=== PATIENT | female | born 2000 | race Caucasian/White ===

== ENCOUNTER 2019-07-11 14:33 | Emergency (ER) | payer SELFPAY ==
[~2019-07-11] VITALS: Ht 160 cm; Wt 123.9 kg
[2019-07-11 14:43] VITALS: BP 131/84
--- NOTE | 2019-07-11 14:49 | ED GI ---
General Chief Complaint: Abdominal/GI Problems Stated Complaint: NAUSEA Nursing Triage Note: COMPLAINS OF NAUSEA ALONG WITH BEING HOT. Sepsis Screen: No Definite Risk Source of Information: Patient Exam Limitations: No Limitations History of Present Illness Date Seen by Provider: Jul 11, 2019 Time Seen by Provider: 14:47 Initial Comments To ER with complaints of nausea, suprapubic abdominal discomfort described as a cramping sensation and feeling hot. No fever no cough no sore throat no travel. Symptoms began this morning upon awakening. Timing/Duration: 1-3 Hours Severity/Quality: Moderate Location: Suprapubic Radiation: No Radiation Activities at Onset: None Associated Symptoms: Nausea/Vomiting Allergies and Home Medications Allergies Coded Allergies: No Known Drug Allergies (Unverified , 07/11/19) Home Medications No Active Prescriptions or Reported Meds Patient Home Medication List Home Medication List Reviewed: Yes Review of Systems Review of Systems Constitutional: see HPI EENTM: No Symptoms Reported Respiratory: No Symptoms Reported Cardiovascular: No Symptoms Reported Gastrointestinal: See HPI, Abdominal Pain, Nausea Genitourinary: No Symptoms Reported Musculoskeletal: no symptoms reported Skin: no symptoms reported Psychiatric/Neurological: No Symptoms Reported Endocrine: No Symptoms Reported Hematologic/Lymphatic: No Symptoms Reported Past Xtmnnij-Bmigmv-Ldjbei Hx Patient Social History Recent Foreign Travel: No Contact w/Someone Who Travel: No Recent Infectious Disease Expo: No Physical Exam Vital Signs Vital Signs - First Documented 07/11/19 14:43 Temp 36.6 Pulse 102 Resp 16 B/P (MAP) 131/84 (100) Pulse Ox 99 O2 Delivery Room Air Capillary Refill : Less Than 3 Seconds Height/Weight/BMI Height: '" Weight: lbs. oz. kg; 48.00 BMI Method: General Appearance: WD/WN, no apparent distress HEENT: PERRL/EOMI, normal ENT inspection Respiratory: no respiratory distress, no accessory muscle use Cardiovascular: regular rate, rhythm, no murmur Gastrointestinal: normal bowel sounds, non tender, soft Extremities: normal range of motion, non-tender Neurologic/Psychiatric: alert, normal mood/affect, oriented x 3 Skin: normal color, warm/dry Progress/Results/Core Measures Results/Orders Lab Results Laboratory Tests Test 07/11/19 14:50 07/11/19 15:07 Range/Units Urine Color YELLOW Urine Clarity SL CLOUDY Urine pH 6.0 5-9 Urine Specific Walker 1.015 L 1.016-1.022 Urine Protein NEGATIVE NEGATIVE Urine Glucose (UA) NEGATIVE NEGATIVE Urine Ketones NEGATIVE NEGATIVE Urine Nitrite NEGATIVE NEGATIVE Urine Bilirubin NEGATIVE NEGATIVE Urine Urobilinogen 0.2 < = 1.0 MG/DL Urine Leukocyte Esterase TRACE H NEGATIVE Urine RBC (Auto) TRACE-I NEGATIVE Urine RBC RARE /HPF Urine WBC RARE /HPF Urine Squamous Epithelial Cells 0-2 /HPF Urine Crystals NONE /LPF Urine Bacteria TRACE /HPF Urine Casts NONE /LPF Urine Mucus NEGATIVE /LPF Urine Culture Indicated NO White Blood Count 9.5 4.3-11.0 10^3/uL Red Blood Count 4.84 4.35-5.85 10^6/uL Hemoglobin 14.9 11.5-16.0 G/DL Hematocrit 45 35-52 % Mean Corpuscular Volume 93 80-99 FL Mean Corpuscular Hemoglobin 31 25-34 PG Mean Corpuscular Hemoglobin Concent 33 32-36 G/DL Red Cell Distribution Width 12.7 10.0-14.5 % Platelet Count 324 130-400 10^3/uL Mean Platelet Volume 10.5 H 7.4-10.4 FL Neutrophils (%) (Auto) 60 42-75 % Lymphocytes (%) (Auto) 26 12-44 % Monocytes (%) (Auto) 8 0-12 % Eosinophils (%) (Auto) 5 0-10 % Basophils (%) (Auto) 0 0-10 % Neutrophils # (Auto) 5.7 1.8-7.8 X 10^3 Lymphocytes # (Auto) 2.5 1.0-4.0 X 10^3 Monocytes # (Auto) 0.8 0.0-1.0 X 10^3 Eosinophils # (Auto) 0.5 H 0.0-0.3 10^3/uL Basophils # (Auto) 0.0 0.0-0.1 10^3/uL My Orders Orders - SABRINA MOULTON APRN Ondansetron Oral Dissolve Tab (Zofran (07/11/19 15:00) Cbc With Automated Diff (07/11/19 14:50) Medications Given in ED Current Medications Medications Dose Ordered Sig/Emily Route Start Time Stop Time Status Last Admin Dose Admin Ondansetron HCl 8 mg ONCE ONCE PO 07/11/19 15:00 07/11/19 15:01 DC 07/11/19 15:02 8 MG Vital Signs/I&O 07/11/19 14:43 Temp 36.6 Pulse 102 Resp 16 B/P (MAP) 131/84 (100) Pulse Ox 99 O2 Delivery Room Air Blood Pressure Mean: 100 Departure Impression Primary Impression: Nausea alone Disposition: 01 HOME, SELF-CARE Condition: Stable Departure-Patient Inst. Decision time for Depature: 15:15 Referrals: NO,LOCAL PHYSICIAN (PCP) Primary Care Physician Patient Instructions: Nausea and Vomiting, Adult Add. Discharge Instructions: 1. Nausea medication as directed 2. Follow-up with your doctor this week. All discharge instructions reviewed with patient and/or family. Voiced understanding. Scripts Ondansetron (Ondansetron Odt) 8 Mg Tab.rapdis 8 MG PO Q6H PRN for NAUSEA/VOMITING, #14 TAB Prov: SABRINA MOULTON APRN 07/11/19 Work/School Note: Work Release Form Date Seen in the Emergency Department: Jul 11, 2019 Return to Work: Jul 14, 2019 SABRINA MOULTON APRN Jul 11, 2019 14:49
[2019-07-11 14:59] LABS: BILIRUBIN,URINE NEGATIVE (NEGATIVE); CLARITY,URINE SL CLOUDY; COLOR,URINE YELLOW; GLUCOSE, URINE (UA) NEGATIVE (NEGATIVE); KETONES,URINE NEGATIVE (NEGATIVE); LEUKOCYTE ESTERASE ,URINE TRACE (NEGATIVE); NITRITE,URINE NEGATIVE (NEGATIVE); PROTEIN,URINE NEGATIVE (NEGATIVE)
[2019-07-11] MEDS ORDERED: ONDANSETRON 4 MG (ZOFRAN) ORAL DISSOLVE TAB PO ONE (15:00)
[2019-07-11 15:13] LABS: BACTERIA,URINE TRACE /HPF; RBC,URINE RARE /HPF; SQUAMOUS EPITHELIAL CELL,UR 0-2 /HPF; WBC,URINE RARE /HPF
[2019-07-11 15:13] LABS: BASOPHILS % (AUTO) 0 % (0-10); EOSINOPHILS # (AUTO) 0.5 10^3/uL (0.0-0.3); EOSINOPHILS % (AUTO) 5 % (0-10); HEMATOCRIT 45 % (35-52); HEMOGLOBIN 14.9 G/DL (11.5-16.0); LYMPHOCYTES # (AUTO) 2.5 X 10^3 (1.0-4.0); LYMPHOCYTES % (AUTO) 26 % (12-44); MEAN CORPUSCULAR HEMOGLOBIN 31 PG (25-34); MEAN CORPUSCULAR HGB CONC 33 G/DL (32-36); MEAN CORPUSCULAR VOLUME 93 FL (80-99); MEAN PLATELET VOLUME 10.5 FL (7.4-10.4); MONOCYTES # (AUTO) 0.8 X 10^3 (0.0-1.0); MONOCYTES % (AUTO) 8 % (0-12); NEUTROPHILS # (AUTO) 5.7 X 10^3 (1.8-7.8); NEUTROPHILS % (AUTO) 60 % (42-75); PLATELET COUNT 324 10^3/uL (130-400); RED CELL DISTRIBUTION WIDTH 12.7 % (10.0-14.5); WHITE BLOOD COUNT 9.5 10^3/uL (4.3-11.0)
[2019-07-11] MEDS ORDERED: ONDA8TAB13 PO (15:16)
--- OUTSIDE RECORDS SUMMARY | 2019-07-11 18:22 | XMS REPORT | Continuity of Care Document ---
Author Organization Unknown Address Unknown Phone Unavailable Allergies Active Description Code Type Severity Reaction Onset Reported/Identified Relationship to Patient Clinical Status Yes No Known Drug Allergies [id number] Miscellaneous Allergy Moderate N/A Yes No Allergy Information Drug Allergy 01/22/2012 Yes No Known Allergies No Known Allergies Drug Allergy Unknown N/A 09/07/2017 Medications There is no data. Problems Date Dx Coded Attending Type Code Diagnosis Diagnosed By 01/22/2012 Raji Garcia MD Final 789. 03 RLQ ABDOMINAL PAIN 10/23/2017 GABRIEL COX E282 Polycystic ovarian syndrome 10/23/2017 GABRIEL COX [id number] Nicotine dependence, unspecified, uncomplicated 10/23/2017 GABRIEL COX J029 Acute pharyngitis, unspecified 10/23/2017 GABRIEL COX R110 Nausea 10/23/2017 GABRIEL COX R590 Localized enlarged lymph nodes 09/11/2018 ROBIN KIRKPATRICK P A 084 Viral intestinal infection, unspecified 09/11/2018 ROBIN KIRKPATRICK E6601 Morbid (severe) obesity due to excess calories Procedures There is no data. Results Test Result Range UR TEST - 09/07/17 18:33 UR TEST NEGATIVE NEGATIVE URINALYSIS, ROUTINE - 09/07/17 18:33 UA LEUKOCYTE ESTERASE DIPSTICK 1+ NEGATIVE UA NITRITE DIPSTICK NEGATIVE NEGATIVE UA PROTEIN DIPSTICK TRACE NEGATIVE UA GLUCOSE DIPSTICK NEGATIVE NEGATIVE UA KETONE DIPSTICK NEGATIVE NEGATIVE UA UROBILINOGEN DIPSTICK NORMAL EDILBERTO L UA BILIRUBIN DIPSTICK NEGATIVE NEGATIVE UA BLOOD DIPSTICK 4+ NEGATIVE UA SPECIFIC GRAVITY 1.020 1.015-1.02 5 UR PH 5.0 5.0-7.0 UA MICROSCOPIC - 09/07/17 18:33 UA BACTERIA 2+ NEGATIVE UA EPITHELIAL CELLS 2+ epi/hpf 0 - 1+ UA RBC 10-20 rbc/hpf 0 - 3 UA VOLUME FOR EXAM 12.0 mL (12mL STD) UA WBC 20-50 wbc/hpf 0 - 5 WBC CLUMPS PRESENT NEGATIVE CBC - 09/07/17 18:33 MEAN CELL HGB 30.4 pg 27.0-33.0 MEAN CELL HGB CONCENTRATION 33.3 g/dL 32 .0-37.0 MEAN CELL VOLUME 91.2 fl 80.0-100.0 MEAN PLATELET VOLUME 10.5 fl 8.5-10.9 RED BLOOD CELL 4.41 m/cumm 4.00-6.00 RED CELL DISTRIBUTION WIDTH 12.2 % 11 .0-15.6 WHITE BLOOD CELL 9.1 k/cumm 5.0-10.0 HEMOGLOBIN 13.4 gm/dL 12.0-16.0 HEMATOCRIT 40.2 % 37.0-47.0 NRBC % 0.0 /100 WBC 0.0-0.0 PLATELET COUNT 300 k/cumm 150-400 URINE CULTURE - 09/07/17 18:33 Microbiology Complete urinalysis with reflex to cultu re - 07/11/19 14:50 Urine color determination YELLOW NRG Urine clarity determination SL CLOUDY N RG Urine pH measurement by test strip 6.0 5-9 Specific gravity of urine by test strip 1.015 1.016-1.022 Urine protein assay by test strip, semi-quantitative NEGATIVE NEGATIVE Urine glucose detection by automated test strip NE GATIVE NEGATIVE Erythrocytes detection in urine sediment by light micr oscopy TRACE-I NEGATIVE Urine ketones detection by automated test strip NE GATIVE NEGATIVE Urine nitrite detection by test strip NEGATIVE NEGATIVE Urine total bilirubin detection by test strip NEGA TIVE NEGATIVE Urine urobilinogen measurement by automated test strip (mass/volume) 0.2 mg/dL < = 1.0 Urine leukocyte esterase detection by dipstick TRA CE NEGATIVE Automated urine sediment erythrocyte cou nt by microscopy (number/high power field) RARE NRG Automated urine sediment leukocyte count by microscopy (number/high power field) RARE NRG Bacteria detection in urine sediment by light microsco py TRACE NRG Squamous epithelial cells detection in u rine sediment by light microscopy 0-2 NRG Crystals detection in urine sediment by light microsco py NONE NRG Casts detection in urine sediment by light microscopy NONE NRG Mucus detection in urine sediment by light microscopy NEGATIVE NRG Complete urinalysis with reflex to culture NO NRG Complete blood count (CBC) with automate d white blood cell (WBC) differential - 07/11/19 15:07 Blood leukocytes automated count (number/volume) 9.5 10*3/uL 4.3-11.0 Blood erythrocytes automated count (number/volume) 4.84 10*6/uL 4.35-5.85 Venous blood hemoglobin measurement (mass/volume) 14.9 g/dL 11.5-16.0 Blood hematocrit (volume fraction) 45 % 35-52 Automated erythrocyte mean corpuscular volume 93 [ foz_us] 80-99 Automated erythrocyte mean corpuscular h emoglobin (mass per erythrocyte) 31 pg 25-34 Automated erythrocyte mean corpuscular h emoglobin concentration measurement (mass/volume) 33 g/dL 32-36 Automated erythrocyte distribution width ratio 12. 7 % 10.0- 14.5 Automated blood platelet count (count/volume) 324 10*3/uL 130-400 Automated blood platelet mean volume measurement 10.5 [foz_us] 7.4-10.4 Automated blood neutrophils/100 leukocytes 60 % 42-75 Automated blood lymphocytes/100 leukocytes 26 % 12-44 Blood monocytes/100 leukocytes 8 % 0-12 Automated blood eosinophils/100 leukocytes 5 % 0-10 Automated blood basophils/100 leukocytes 0 % 0-10 Blood neutrophils automated count (number/volume) 5.7 10*3 1.8-7.8 Blood lymphocytes automated count (number/volume) 2.5 10*3 1.0-4.0 Blood monocytes automated count (number/volume) 0. 8 10*3 0.0-1.0 Automated eosinophil count 0.5 10*3/uL 0 .0-0.3 Automated blood basophil count (count/volume) 0.0 10*3/uL 0.0-0.1 Radiology Report from [facility] on 04/26/20 18 07:43:00 PATIENT NAME: JACEK BOCANEGRA UNIT NO: [id number] EXAMS: CPT CODE: [id number] XR ANKLE 3 V LT [id number] INDICATION: Left ankle pain. TIME: 04/26/2018 2:45 AM COMPARISON: None TECHNIQUE: 3 views of the left ankle. FINDINGS: No or acute osseous findings involving the left ankle. The bony mortise is preserved, with no evidence of joint space widening or effusion. A plantar calcaneal enthesophyte is noted. Regional soft tissues are unremarkable. No unexpected radiopaque foreign body seen. IMPRESSION: 1. No acute osseous findings within the left ankle. I have personally reviewed these images and corrected the resident physician's interpretation if necessary. at 0738 RESIDENT: MARY AIKEN MD Reported and signed by: YULIANA STACY MD CC: TECHNOLOGIST: TRENT PINO TRANSCRIBED DATE/Time: 04/26/2018737 BY: PDOBNA EXAM COMPLETE DATE/TIME: [id number] D/TM:04/26/2018 (0743) [facility] NAME: JACEK BOCANEGRA [address] HP: [phone] AGE: 18 S:F [place] [address] : 2000 LOC: W.EDW PHYS: Camilla Sharma MD PHONE #: [phone] EXAM DATE: 04/26/2018 STATUS: DEP ER FAX #: [phone] A#: [id number] U#: [id number] PAGE 1 Signed Report *Final Page* Encounters ACCT No. Visit Date/Time Discharge Status Pt. Type Provider Facility Loc./Unit Complaint [id number] 09/11/2018 19:46:00 09/11/2018 20:49: 00 DIS Emergency ROBIN KIRKPATRICK [facility] 025 NAUSEA/VOMITING [id number] 10/23/2017 22:25:00 10/23/2017 23:41: 00 DIS Emergency GABRIEL COX [facility] 025 NAUSEA/THROAT PAIN [id number] 01/22/2012 20:55:00 01/23/20 12 00:20:00 DIS Emergency Radha ROSE, Raji [facility] on [address] [id number] 04/26/2018 02:30:00 018 03:27:00 DIS Emergency Hector ROSE, Camilla Marrero [facility] W.EDW [id number] 09/07/2017 18:03:00 018 19:26:00 DIS Emergency Bairon Briceno DO [facility] W.EDW [id number] 07/11/2019 14:35:00 020 15:31:00 DIS Emergency SABRINA MOULTON APRN [facility] ER NAUSEA
== END 2019-07-11 15:31 | disposition home or self-care (01) ==
LOC: ER 14:35
DX: R11.0 Nausea (principal)
CPT/HCPCS: 36415; 81000; 84703; 85025; 99283

== ENCOUNTER 2019-07-14 03:40 | Emergency (ER) | payer SELFPAY ==
[~2019-07-14] VITALS: Ht 160 cm; Wt 124.0 kg
[~2019-07-14 03:40] MED LIST: ONDA8TAB13 PO
[2019-07-14 03:46] VITALS: BP 144/83
--- OUTSIDE RECORDS SUMMARY | 2019-07-14 03:48 | XMS REPORT | Continuity of Care Document ---
Author Organization Unknown Address Unknown Phone Unavailable Allergies Active Description Code Type Severity Reaction Onset Reported/Identified Relationship to Patient Clinical Status Yes No Known Drug Allergies [id number] Miscellaneous Allergy Moderate N/A Yes No Allergy Information Drug Allergy 01/22/2012 Yes No Known Allergies No Known Allergies Drug Allergy Unknown N/A 09/07/2017 Yes No Known Drug Allergies [id number] Drug Allergy Unknown N/A 07/11/2019 Medications There is no data. Problems Date Dx Coded Attending Type Code Diagnosis Diagnosed By 01/22/2012 Raji Garcia MD Final 789. 03 RLQ ABDOMINAL PAIN 10/23/2017 GABRIEL COX E282 Polycystic ovarian syndrome 10/23/2017 GABRIEL COX U64036 Nicotine dependence, unspecified, uncomplicated 10/23/2017 GABRIEL COX P J029 Acute pharyngitis, unspecified 10/23/2017 GABRIEL COX S R110 Nausea 10/23/2017 GABRIEL COX R590 Localized [...] (count/volume) 0.0 10*3/uL 0.0-0.1 Radiology Report from [facility] on 04/26/20 18 07:43:00 PATIENT NAME: JACEK BOCANEGRA UNIT NO: [id number] EXAMS: CPT CODE: [id number] XR ANKLE 3 V LT 19305 INDICATION: Left ankle pain. TIME: 04/26/2018 2:45 [...] MD CC: TECHNOLOGIST: TRENT PINO TRANSCRIBED DATE/Time: 04/26/2018 0738 BY: PDOBNA EXAM COMPLETE DATE/TIME: [id number] D/TM:04/26/2018 (0743) [facility] NAME: JACEK BOCANEGRA [address] HP: [phone] AGE: 18 S:[place] [address] : 2000 LOC: W.EDW PHYS: Camilla Sharma MD PHONE #: [phone] EXAM DATE: 04/26/2018 STATUS: DEP ER FAX #: [phone] A#: [id number] U#: [id number] PAGE 1 Signed Report *Final Page* Encounters ACCT No. Visit Date/Time Discharge Status Pt. Type Provider Facility Loc./Unit Complaint [id number] 09/11/2018 19:46:00 09/11/2018 20:49: 00 DIS Emergency ROBIN KIRKPATRICK [facility] 025 NAUSEA/VOMITING [id number] 10/23/2017 22:25:00 10/23/2017 23:41: 00 DIS Emergency GABRIEL COX [facility] 025 NAUSEA/THROAT PAIN [id number] 01/22/2012 20:55:00 01/23/20 12 00:20:00 DIS Emergency Radha ROSE, Raji Law [facility] on [address] [id number] 04/26/2018 02:30:00 018 03:27:00 DIS Emergency Hector ROSE, Camilla Marrero [facility] W.EDW [id number] 09/07/2017 18:03:00 018 19:26:00 DIS Emergency Bairon Briceno DO [facility] W.EDW [id number] 07/11/2019 14:35:00 020 15:31:00 DIS Emergency SABRINA MOULTON APRN [facility] ER NAUSEA
[2019-07-14] MEDS ORDERED: ONDANSETRON 4 MG (ZOFRAN) ORAL DISSOLVE TAB ONE (03:53)
[2019-07-14] MEDS ORDERED: ONDANSETRON 4 MG (ZOFRAN) ORAL DISSOLVE TAB PO ONE (04:00)
[2019-07-14 04:13] LABS: BILIRUBIN,URINE NEGATIVE (NEGATIVE); CLARITY,URINE SL CLOUDY; COLOR,URINE YELLOW; GLUCOSE, URINE (UA) NEGATIVE (NEGATIVE); KETONES,URINE NEGATIVE (NEGATIVE); LEUKOCYTE ESTERASE ,URINE NEGATIVE (NEGATIVE); NITRITE,URINE NEGATIVE (NEGATIVE); PROTEIN,URINE NEGATIVE (NEGATIVE)
[2019-07-14 04:21] LABS: BACTERIA,URINE TRACE /HPF; RBC,URINE 0-2 /HPF; SQUAMOUS EPITHELIAL CELL,UR 0-2 /HPF
--- NOTE | 2019-07-14 04:46 | ED General ---
General Chief Complaint: Cough/Cold/Flu Symptoms Stated Complaint: NAUSEA,HOT FLASHES,COUGH,LIGHT HEADED,DIZZY Nursing Triage Note: hot flashes, intermittant cough, nausea x3 days Nursing Sepsis Screen: No Definite Risk Source of Information: Patient Exam Limitations: No Limitations History of Present Illness Date Seen by Provider: Jul 14, 2019 Time Seen by Provider: 03:46 Initial Comments This 19-year-old young lady presents to the emergency room with complaints of significant nausea since July 10. She has had some dry heaving but no vomi ting. She was seen on the and prescribed Zofran. She did not get that filled due to finances. She has since developed some cough and hot flashes. She denies . She has not traveled outside of the [place] or been exposed to anybody who has traveled outside of the [place]. She has not traveled to any high-risk areas for thomas virus. She has not been exposed to anyone diagnosed with thomas virus or under investigation. She did visit [place], [place] about 2 weeks ago. Her fianc also has an upper respiratory infection at this time. Allergies and Home Medications Allergies Coded Allergies: No Known Drug Allergies (Unverified , 07/11/19) Home Medications Ondansetron 8 Mg Tab.rapdis, 8 MG PO Q6H PRN for NAUSEA/VOMITING Prescribed by: SABRINA MOULTON on 07/11/19 1516 Patient Home Medication List Home Medication List Reviewed: Yes Review of Systems Review of Systems Constitutional: see HPI; No fever EENTM: no symptoms reported Respiratory: see HPI Cardiovascular: no symptoms reported Gastrointestinal: see HPI Genitourinary: no symptoms reported : No Musculoskeletal: no symptoms reported Skin: no symptoms reported Psychiatric/Neurological: No Symptoms Reported Hematologic/Lymphatic: No Symptoms Reported Immunological/Allergic: no symptoms reported Past Gyeflhz-Gdfssv-Bfibuw Hx Past Med/Social Hx: Reviewed and Corrections made Patient Social History Alcohol Use: Denies Use Recreational Drug Use: No Smoking Status: Current Everyday Smoker Type Used: Cigarettes 2nd Hand Smoke Exposure: No Recent Foreign Travel: No Contact w/Someone Who Travel: No Recent Infectious Disease Expo: No Recent Hopitalizations: No Physical Abuse: No Sexual Abuse: No Mistreated: No Fear: No Immunizations Up To Date PED Vaccines UTD: No Seasonal Allergies Seasonal Allergies: No Past Medical History Surgeries: No Respiratory: No Cardiac: No Neurological: No : No Reproductive Disorders: Yes Female Reproductive Disorders: Polycystic Ovarian Dis Genitourinary: No Gastrointestinal: No Musculoskeletal: No Endocrine: No HEENT: No Cancer: No Psychosocial: Yes Anxiety, Depression Integumentary: No Physical Exam Vital Signs Vital Signs - First Documented 07/14/19 03:46 Temp 36.3 Pulse 115 Resp 18 B/P (MAP) 144/83 (103) Pulse Ox 98 O2 Delivery Room Air Capillary Refill : Less Than 3 Seconds Height, Weight, BMI Height: '" Weight: lbs. oz. kg; 48.00 BMI Method: General Appearance: No Apparent Distress, WD/WN HEENT: PERRL/EOMI, TMs Normal, Normal ENT Inspection, Pharynx Normal Neck: Normal Inspection Respiratory: Lungs Clear, Normal Breath Sounds, No Accessory Muscle Use, No Respiratory Distress Cardiovascular: No Edema, No Murmur, Tachycardia Gastrointestinal: Normal Bowel Sounds, Non Tender, Soft Extremity: Normal Inspection, No Pedal Edema Neurologic/Psychiatric: Alert, Oriented x3, No Motor/Sensory Deficits, Normal Mood/Affect, devulcanizer charger II-XII Norm as Tested Skin: Normal Color, Warm/Dry Progress/Results/Core Measures Suspected Sepsis Recent Fever Within 48 Hours: No Infection Criteria Present: None New/Unexplained Altered Menta: No Sepsis Screen: No Definite Risk SIRS Temperature: Pulse: 115 Respiratory Rate: 18 Blood Pressure 144 /83 Mean: 103 Results/Orders Lab Results Laboratory Tests Test 07/14/19 03:58 Range/Units Urine Color YELLOW Urine Clarity SL CLOUDY Urine pH 6.0 5-9 Urine Specific [place] 1.025 H 1.016-1.022 Urine Protein NEGATIVE NEGATIVE Urine Glucose (UA) NEGATIVE NEGATIVE Urine Ketones NEGATIVE NEGATIVE Urine Nitrite NEGATIVE NEGATIVE Urine Bilirubin NEGATIVE NEGATIVE Urine Urobilinogen 0.2 < = 1.0 MG/DL Urine Leukocyte Esterase NEGATIVE NEGATIVE Urine RBC (Auto) TRACE-I NEGATIVE Urine RBC 0-2 /HPF Urine WBC NONE /HPF Urine Squamous Epithelial Cells 0-2 /HPF Urine Crystals NONE /LPF Urine Bacteria TRACE /HPF Urine Casts NONE /LPF Urine Mucus NEGATIVE /LPF Urine Culture Indicated NO Micro Results Microbiology 07/14/19 Influenza Types A,B Antigen (DEBBIE) - Final, Complete My Orders Orders - FREYA RENDON MD Influenza A And B Antigens (07/14/19 03:46) Urine Bedside (07/14/19 03:56) Ondansetron Oral Dissolve Tab (Zofran (07/14/19 04:00) Ondansetron Oral Dissolve Tab (Zofran (07/14/19 03:53) Ua Culture If Indicated (07/14/19 04:08) Medications Given in ED Current Medications Medications Dose Ordered Sig/Emily Route Start Time Stop Time Status Last Admin Dose Admin Ondansetron HCl 8 mg ONCE ONCE PO 07/14/19 04:00 07/14/19 04:01 DC 07/14/19 04:00 8 MG Vital Signs/I&O 07/14/19 07/14/19 03:46 03:46 Temp 36.3 Pulse 115 Resp 18 B/P (MAP) 144/83 (103) Pulse Ox 98 O2 Delivery Room Air Room Air Capillary Refill : Less Than 3 Seconds Blood Pressure Mean: 103 Progress Note : Progress Note Rapid influenza screen was negative. Urinalysis was unremarkable for infection or ketones. Zofran was given. Patient was offered further workup with chest x- ray and labs. She declined and was discharged. She was encouraged to establish with a primary care provider. Departure Impression Primary Impression: Flu-like symptoms Additional Impression: Nausea and vomiting Qualified Codes: R11.2 - Nausea with vomiting, unspecified Disposition: 01 HOME, SELF-CARE Condition: Stable Departure-Patient Inst. Decision time for Depature: 04:43 Referrals: [facility] NO,LOCAL PHYSICIAN (PCP) Primary Care Physician Patient Instructions: Nausea and Vomiting, Adult (DC) Add. Discharge Instructions: Start with a clear liquid diet and gradually advance your diet with small quantities of bland food as tolerated. Drink plenty of clear liquids. For aches, pains, and fevers you may take Tylenol (acetaminophen) up to thousand milligrams every 6 hours as needed and/or ibuprofen up to 600 mg every 6 hours as needed. Uses Zofran (ondansetron) as prescribed if needed for nausea and vomiting. Complete financial management analyst paperwork for the hospital and establish with a primary care provider soon as possible. Contact information for the [facility] is below. Return to care if you have worsening symptoms despite following the above measures. All discharge instructions reviewed with patient and/or family. Voiced understanding. Work/School Note: Work Release Form Date Seen in the Emergency Department: Jul 14, 2019 Return to Work: Jul 16, 2019 Restrictions: No Restrictions FREYA RENDON MD Jul 14, 2019 04:45
== END 2019-07-14 04:45 | disposition home or self-care (01) ==
LOC: EDUNIT# 03:40 → ER 03:43
DX: R11.2 Nausea with vomiting, unspecified (principal); F17.210 Nicotine dependence, cigarettes, uncomplicated; Z91.120 Patient's intentional underdosing of medication regimen due to financial hardship
CPT/HCPCS: 81000; 84703; 87804

== ENCOUNTER 2019-07-21 13:59 | Emergency (ER) | payer SELFPAY ==
[~2019-07-21] VITALS: Ht 160 cm; Wt 123.8 kg
[2019-07-21] MEDS ORDERED: ONDANSETRON 4 MG/2 ML (SDV) Z0FRAN IVP ONE (14:15)
[2019-07-21] MEDS ORDERED: NS IV 1000 ML 1,000 ML IV SCH (14:15)
[2019-07-21 14:21] LABS: BASOPHILS % (AUTO) 0 % (0-10); EOSINOPHILS # (AUTO) 0.4 10^3/uL (0.0-0.3); EOSINOPHILS % (AUTO) 5 % (0-10); HEMATOCRIT 44 % (35-52); HEMOGLOBIN 14.2 G/DL (11.5-16.0); LYMPHOCYTES # (AUTO) 2.9 X 10^3 (1.0-4.0); LYMPHOCYTES % (AUTO) 35 % (12-44); MEAN CORPUSCULAR HEMOGLOBIN 31 PG (25-34); MEAN CORPUSCULAR HGB CONC 33 G/DL (32-36); MEAN CORPUSCULAR VOLUME 94 FL (80-99); MEAN PLATELET VOLUME 10.4 FL (7.4-10.4); MONOCYTES # (AUTO) 0.6 X 10^3 (0.0-1.0); MONOCYTES % (AUTO) 7 % (0-12); NEUTROPHILS # (AUTO) 4.5 X 10^3 (1.8-7.8); NEUTROPHILS % (AUTO) 53 % (42-75); PLATELET COUNT 322 10^3/uL (130-400); RED CELL DISTRIBUTION WIDTH 12.8 % (10.0-14.5); WHITE BLOOD COUNT 8.4 10^3/uL (4.3-11.0)
--- NOTE | 2019-07-21 14:24 | ED GI ---
General Chief Complaint: Abdominal/GI Problems Stated Complaint: NAUSEA/VOMITING;COUGH Nursing Triage Note: PT AMBULATE TO ROOM 05 WITH C/O ABD PAIN, N/V, COUGH, FEVER. Sepsis Screen: No Definite Risk Source of Information: Patient Exam Limitations: No Limitations History of Present Illness Date Seen by Provider: Jul 21, 2019 Time Seen by Provider: 14:21 Initial Comments To ER with nonproductive cough intermittently for a few weeks, no fevers, nausea vomiting and intermittent diarrhea. Boyfriend is ill with similar symptoms. She's had no known exposure to coronavirus patient's nor has she traveled to areas with community spread. This is her third visit to the emergency room in 3 weeks, she is new to the area. Timing/Duration: Other Severity/Quality: Moderate Location: Generalized Abdomen Radiation: No Radiation Activities at Onset: None Allergies and Home Medications Allergies Coded Allergies: No Known Drug Allergies (Unverified , 07/11/19) Home Medications Ondansetron 8 Mg Tab.rapdis, 8 MG PO Q6H PRN for NAUSEA/VOMITING Prescribed by: SABRINA MOULTON on 07/11/19 1516 Patient Home Medication List Home Medication List Reviewed: Yes Review of Systems Review of Systems Constitutional: see HPI; No chills, No fever Respiratory: See HPI, Cough; Denies Shortness of Air, Denies SOA With Exertion, Denies SOA at Rest Gastrointestinal: See HPI; Denies Abdominal Pain; Diarrhea, Nausea; Denies Vomiting Genitourinary: No Symptoms Reported Musculoskeletal: no symptoms reported Skin: no symptoms reported Psychiatric/Neurological: No Symptoms Reported Endocrine: No Symptoms Reported Hematologic/Lymphatic: No Symptoms Reported Past Sciqucl-Pfhmjg-Xkpnxx Hx Patient Social History Alcohol Use: Rarely Uses Recreational Drug Use: No Smoking Status: Current Everyday Smoker Type Used: Cigarettes 2nd Hand Smoke Exposure: No Recent Foreign Travel: No Contact w/Someone Who Travel: No Recent Infectious Disease Expo: No Recent Hopitalizations: No Physical Abuse: No Sexual Abuse: No Mistreated: No Fear: No Immunizations Up To Date PED Vaccines UTD: No Seasonal Allergies Seasonal Allergies: No Past Medical History Surgeries: No Respiratory: No Cardiac: No Neurological: No Reproductive Disorders: Yes Female Reproductive Disorders: Polycystic Ovarian Dis Genitourinary: No Gastrointestinal: No Musculoskeletal: No Endocrine: No HEENT: No Cancer: No Psychosocial: Yes Anxiety, Depression Integumentary: No Physical Exam Vital Signs Vital Signs - First Documented 07/21/19 14:12 Temp 36.0 Pulse 113 Resp 17 B/P (MAP) 146/88 (107) O2 Delivery Room Air Capillary Refill : Less Than 3 Seconds Height/Weight/BMI Height: '" Weight: lbs. oz. kg; 48.00 BMI Method: General Appearance: WD/WN, no apparent distress, obese Respiratory: lungs clear, normal breath sounds, no respiratory distress, no accessory muscle use Cardiovascular: regular rate, rhythm, no murmur Gastrointestinal: normal bowel sounds, soft Extremities: normal range of motion, non-tender Neurologic/Psychiatric: alert, normal mood/affect, oriented x 3 Skin: normal color, warm/dry Progress/Results/Core Measures Results/Orders Lab Results Laboratory Tests Test 07/21/19 14:11 Range/Units My Orders Orders - SABRINA MOULTON APRN Cbc With Automated Diff (07/21/19 14:15) Comprehensive Metabolic Panel (07/21/19 14:15) Ua Culture If Indicated (07/21/19 14:15) Ed Iv/Invasive Line Start (07/21/19 14:15) Hcg,Qualitative Serum (07/21/19 14:15) Ns Iv 1000 Ml (Sodium Chloride 0.9%) (07/21/19 14:15) Ondansetron Injection (Zofran Injectio (07/21/19 14:15) Chest 1 View, Ap/Pa Only (07/21/19 14:20) Hs C Reactive Protein (07/21/19 14:20) Vital Signs/I&O 07/21/19 14:12 Temp 36.0 Pulse 113 Resp 17 B/P (MAP) 146/88 (107) O2 Delivery Room Air Blood Pressure Mean: 107 Departure Impression Primary Impression: Nausea vomiting and diarrhea Disposition: HOME, SELF-CARE Condition: Stable Departure-Patient Inst. Decision time for Depature: 14:23 Referrals: ALFREDA LEDEZMA BETHANY N MD GAULT, HOLLY R MD NO,LOCAL PHYSICIAN (PCP) Primary Care Physician Patient Instructions: No Instuctions Given Add. Discharge Instructions: 1. Call counts include 234 beds at the [facility] and make an appointment to be seen for follow-up. Ask to be seen by whoever can see you the soonest, sometimes they can see people sooner at the [facility], (sooner than being seen in [place]). That may be an option. All discharge instructions reviewed with patient and/or family. Voiced understanding. SABRINA MOULTON APRN Jul 21, 2019 14:24
[2019-07-21 14:27] LABS: BILIRUBIN,URINE NEGATIVE (NEGATIVE); CLARITY,URINE CLEAR; COLOR,URINE YELLOW; GLUCOSE, URINE (UA) NEGATIVE (NEGATIVE); KETONES,URINE NEGATIVE (NEGATIVE); LEUKOCYTE ESTERASE ,URINE NEGATIVE (NEGATIVE); NITRITE,URINE NEGATIVE (NEGATIVE); PROTEIN,URINE NEGATIVE (NEGATIVE)
[2019-07-21 14:38] LABS: BACTERIA,URINE FEW /HPF; RBC,URINE 0-2 /HPF; WBC,URINE 0-2 /HPF
[2019-07-21 14:45] LABS: ALANINE AMINOTRANSFERASE 76 U/L (0-55); ALBUMIN 4.2 GM/DL (3.2-4.5); ALKALINE PHOSPHATASE 61 U/L (40-136); BILIRUBIN,TOTAL 0.5 MG/DL (0.1-1.0); BUN/CREATININE RATIO 13; CALCIUM 9.3 MG/DL (8.5-10.1); CARBON DIOXIDE 24 MMOL/L (21-32); CHLORIDE 107 MMOL/L (98-107); CREATININE SERUM 0.78 MG/DL (0.60-1.30); GFR ESTIMATED > 60; GLUCOSE 101 MG/DL (70-105); POTASSIUM 4.4 MMOL/L (3.6-5.0); SODIUM 140 MMOL/L (135-145); TOTAL PROTEIN 7.2 GM/DL (6.4-8.2)
--- NOTE | 2019-07-21 14:53 | Diagnostic Imaging Report ---
EXAMINATION: Chest 1 view HISTORY: Nausea. Vomiting. Fever for 10 days. COMPARISON: None available. FINDINGS: The lung volumes are normal. No focal consolidation is seen. No large pleural effusion or pneumothorax is seen. The cardiomediastinal silhouette is normal in size and contour. No acute osseous abnormality is seen. IMPRESSION: 1. No acute pleuroparenchymal process. Dictated by: Dictated on workstation # [id number]
[2019-07-21 15:00] VITALS: BP 130/77
--- OUTSIDE RECORDS SUMMARY | 2019-07-21 16:18 | XMS REPORT | Continuity of Care Document ---
Author Organization Unknown Address Unknown Phone Unavailable Allergies Active Description Code Type Severity Reaction Onset Reported/Identified Relationship to Patient Clinical Status Yes No Known Drug Allergies [id number] Miscellaneous Allergy Moderate N/A Yes No Allergy Information Drug Allergy 01/22/2012 Yes No Known Allergies No Known Allergies Drug Allergy Unknown N/A 09/07/2017 Yes No Known Drug Allergies [id number] Drug Allergy Unknown N/A 07/11/2019 Medications There is no data. Problems Date Dx Coded Attending Type Code Diagnosis Diagnosed By 01/22/2012 Radha ROSE, Raji Final 789. 03 RLQ ABDOMINAL PAIN 10/23/2017 GABRIEL COX E282 Polycystic ovarian syndrome 10/23/2017 GABRIEL COX S [id number] Nicotine dependence, unspecified, uncomplicated 10/23/2017 GABRIEL COX P J029 Acute pharyngitis, unspecified 10/23/2017 GABRIEL COX S R110 Nausea 10/23/2017 GABRIEL COX R590 Localized enlarged lymph nodes 09/11/2018 ROBIN KIRKPATRICK P A 084 Viral intestinal infection, unspecified 09/11/2018 ROBIN KIRKPATRICK E6601 Morbid (severe) obesity due to excess calories 07/11/2019 SABRINA MOULTON SOFTWARE ADMINISTRATOR Ot R11 .0 NAUSEA 07/14/2019 SABRINA MOULTON SOFTWARE ADMINISTRATOR Ot R11 .0 NAUSEA 07/18/2019 JULIETA ROSE, FREYA Dawn Ot F17.210 NICOTINE DEPENDENCE, CIGARETTES, UNCOMPL 07/18/2019 JULIETA ROSE, FREYA Dawn Ot R11.2 NAUSEA WITH VOMITING, UNSPECIFIED 07/18/2019 JULIETA ROSE, FREYA Dawn Ot Z91.120 PT INTENTL UNDRDOSE OF MEDS REGIMEN DUE 07/20/2019 FREYA RENDON MD Ot F17.210 NICOTINE DEPENDENCE, CIGARETTES, UNCOMPL 07/20/2019 JULIETA ROSE, FREYA Dawn Ot R11.2 NAUSEA WITH VOMITING, UNSPECIFIED 07/20/2019 JULIETA ROSE, FREYA Dawn Ot Z91.120 PT INTENTL UNDRDOSE OF MEDS REGIMEN DUE Procedures There is no data. Results Test [...] blood basophil count (count/volume) 0.0 10*3/uL 0.0-0.1 Influenza virus A and B antigen detectio n - 07/14/19 03:52 FLU RESULT NEGATIVE FOR INFLUENZA A AND B ANTIGENS BY IA NRG Complete urinalysis with reflex to cultu re - 07/14/19 03:58 Urine color determination YELLOW NRG Urine clarity determination SL CLOUDY N RG Urine pH measurement by test strip 6.0 5-9 Specific gravity of urine by test strip 1.025 1.016-1.022 Urine protein assay by test strip, [...] 1.0 Urine leukocyte esterase detection by dipstick NEG ATIVE NEGATIVE Automated urine sediment erythrocyte cou nt by microscopy (number/high power field) [HPF] NRG Automated urine sediment leukocyte count by microscopy (number/high power field) NONE NRG Bacteria detection in urine sediment by [...] d white blood cell (WBC) differential - 07/21/19 14:11 Blood leukocytes automated count (number/volume) 8.4 10*3/uL 4.3-11.0 Blood erythrocytes automated count (number/volume) 4.63 10*6/uL 4.35-5.85 Venous blood hemoglobin measurement (mass/volume) 14.2 g/dL 11.5-16.0 Blood hematocrit (volume fraction) 44 % 35-52 Automated erythrocyte mean corpuscular volume 94 [ foz_us] 80-99 Automated erythrocyte mean corpuscular h emoglobin (mass per erythrocyte) 31 pg 25-34 Automated erythrocyte mean corpuscular h emoglobin concentration measurement (mass/volume) 33 g/dL 32-36 Automated erythrocyte distribution width ratio 12. 8 % 10.0- 14.5 Automated blood platelet count (count/volume) 322 10*3/uL 130-400 Automated blood platelet mean volume measurement 10.4 [foz_us] 7.4-10.4 Automated blood neutrophils/100 leukocytes 53 % 42-75 Automated blood lymphocytes/100 leukocytes 35 % 12-44 Blood monocytes/100 leukocytes 7 % 0-12 Automated blood eosinophils/100 leukocytes 5 % 0-10 Automated blood basophils/100 leukocytes 0 % 0-10 Blood neutrophils automated count (number/volume) 4.5 10*3 1.8-7.8 Blood lymphocytes automated count (number/volume) 2.9 10*3 1.0-4.0 Blood monocytes automated count (number/volume) 0. 6 10*3 0.0-1.0 Automated eosinophil count 0.4 10*3/uL 0 .0-0.3 Automated blood basophil count (count/volume) 0.0 10*3/uL 0.0-0.1 Serum or plasma choriogonadotropin (preg carleen test) detection - 07/21/19 14:11 Serum or plasma choriogonadotropin ( test) de tection NEGATIVE NEGATIVE Complete urinalysis with reflex to cultu re - 07/21/19 14:11 Urine color determination YELLOW NRG Urine clarity determination CLEAR NR G Urine pH measurement by test strip 6.0 5-9 Specific gravity of urine by test strip 1.025 1.016-1.022 Urine protein assay by test strip, semi-quantitative NEGATIVE NEGATIVE Urine glucose detection by automated test strip NE GATIVE NEGATIVE Erythrocytes detection in urine sediment by light micr oscopy NEGATIVE NEGATIVE Urine ketones detection by automated test strip NE GATIVE NEGATIVE Urine nitrite detection by test strip NEGATIVE NEGATIVE Urine total bilirubin detection by test strip NEGA TIVE NEGATIVE Urine urobilinogen measurement by automated test strip (mass/volume) 0.2 mg/dL < = 1.0 Urine leukocyte esterase detection by dipstick NEG ATIVE NEGATIVE Automated urine sediment erythrocyte cou nt by microscopy (number/high power field) [HPF] NRG Automated urine sediment leukocyte count by microscopy (number/high power field) [HPF] NRG Bacteria detection in urine sediment by light microsco py FEW NRG Squamous epithelial cells detection in u rine sediment by light microscopy 5-10 NRG Crystals detection in urine sediment by light microsco py NONE NRG Casts detection in urine sediment by light microscopy NONE NRG Mucus detection in urine sediment by light microscopy NEGATIVE NRG Complete urinalysis with reflex to culture YES NRG Serum or plasma C reactive protein measu rement (mass/volume) - 07/21/19 14:11 Serum or plasma C reactive protein measurement (mass/v olume) 0.47 mg/dL 0.00-0.50 Comprehensive metabolic panel - 07/21/19 14:11 Serum or plasma sodium measurement (moles/volume) 140 mmol/L 135-145 Serum or plasma potassium measurement (moles/volume) 4.4 mmol/L 3.6-5.0 Serum or plasma chloride measurement (moles/volume) 107 mmol/L 98-107 Carbon dioxide 24 mmol/L 21-32 Serum or plasma anion gap determination (moles/volume) 9 mmol/L 5-14 Serum or plasma urea nitrogen measurement (mass/volume ) 10 mg/dL 7-18 Serum or plasma creatinine measurement (mass/volume) 0.78 mg/dL 0.60-1.30 Serum or plasma urea nitrogen/creatinine mass ratio 13 NRG Serum or plasma creatinine measurement w ith calculation of estimated glomerular filtration rate > NRG Serum or plasma glucose measurement (mass/volume) 101 mg/dL 70-105 Serum or plasma calcium measurement (mass/volume) 9.3 mg/dL 8.5-10.1 Serum or plasma total bilirubin measurement (mass/volu me) 0.5 mg/dL 0.1-1.0 Serum or plasma alkaline phosphatase payal surement (enzymatic activity/volume) 61 U/L 40-136 Serum or plasma aspartate aminotransfera se measurement (enzymatic activity/volume) 41 U/L 5-34 Serum or plasma alanine aminotransferase measurement (enzymatic activity/volume) 76 U/L 0-55 Serum or plasma protein measurement (mass/volume) 7.2 g/dL 6.4-8.2 Serum or plasma albumin measurement (mass/volume) 4.2 g/dL 3.2-4.5 CALCIUM CORRECTED 9.1 mg/dL 8.5-10.1 Radiology Report from [facility] on 04/26/20 18 07:43:00 PATIENT NAME: JACEK BOCANEGRA UNIT NO: [id number] EXAMS: CPT CODE: [id number] XR ANKLE 3 V LT [id number] INDICATION: Left ankle pain. TIME: 04/26/2018 2:45 [...] TRENT PINO TRANSCRIBED DATE/Time: 04/26/2018 0738 BY: DIVINA EXAM COMPLETE DATE/TIME: [id number] D/TM:04/26/2018 (0743) [facility] NAME: JACEK BOCANEGRA [address] HP: [phone] AGE: 18 S:F [place], [place] [address] : 2000 LOC: W.EDW PHYS: Camilla Sharma MD PHONE #: [phone] EXAM DATE: 04/26/2018 STATUS: DEP ER FAX #: [phone] A#: [id number] U#: [id number] PAGE 1 Signed Report *Final Page* Encounters ACCT No. Visit Date/Time Discharge Status Pt. Type Provider Facility Loc./Unit Complaint [id number] 09/11/2018 19:46:00 09/11/2018 20:49: 00 DIS Emergency ROBIN KIRKPATRICK [facility] 025 NAUSEA/VOMITING [id number] 10/23/2017 22:25:00 10/23/2017 23:41: 00 DIS Emergency GABRIEL COX [facility] 025 NAUSEA/THROAT PAIN [id number] 01/22/2012 20:55:00 01/23/20 12 00:20:00 DIS Emergency Radha ROSE, [facility] [id number] 04/26/2018 02:30:00 018 03:27:00 DIS Emergency Hector ROSE, Camilla Marrero [facility] W.EDW [id number] 09/07/2017 18:03:00 018 19:26:00 DIS Emergency Bairon Briceno DO [facility] W.EDW [id number] 07/14/2019 03:43:00 020 04:45:00 DIS Outpatient JULIETA ROSE, FREYA Dawn [facility] ER NAUSEA,HOT FLASHES,COUGH,LIGHT HEADED,DIZZY [id number] 07/11/2019 14:35:00 020 15:31:00 DIS Outpatient SABRINA MOULTON APRN Via [facility] ER NAUSEA [id number] 07/21/2019 14:24:00 Document Registration
== END 2019-07-21 15:00 | disposition home or self-care (01) ==
LOC: EDUNIT# 13:59 → ER 14:00
DX: R11.2 Nausea with vomiting, unspecified (principal); R19.7 Diarrhea, unspecified; R05 Cough; F41.9 Anxiety disorder, unspecified; F32.9 Major depressive disorder, single episode, unspecified; F17.210 Nicotine dependence, cigarettes, uncomplicated
CPT/HCPCS: 36415; 71045; 80053; 81000; 84703; 85025; 86141; 87077; 87088

== ENCOUNTER 2019-10-30 20:13 | Emergency (ER) | payer SELFPAY ==
[~2019-10-30] VITALS: Ht 162.6 cm; Wt 124.7 kg
--- OUTSIDE RECORDS SUMMARY | 2019-10-30 20:17 | XMS REPORT | Continuity of Care Document ---
Author Organization Unknown Address Unknown Phone Unavailable Allergies Active Description Code Type Severity Reaction Onset Reported/Identified Relationship to Patient Clinical Status Yes No Known Drug Allergies [id number] Miscellaneous Allergy Moderate N/A Yes No Allergy Information Drug Allergy 01/22/2012 Yes No Known Medication Allergies NKMA N/A N/A 12/13/2014 Yes No Known Allergies No Known Allergies Drug Allergy Unknown N/A 09/07/2017 Yes No Known Drug Allergies [id number] Drug Allergy Unknown N/A 07/11/2019 Medications Medication Packaging Start Date St op Date Route Dosage Sig promethazine-codeine(prometh azine-codeine 6.25 mg-10 mg/5 mL oral syrup) 5 mL 06/21/2018 06/25/2018 Oral 5 mL, Or al, q4hr, PRN: as needed for cough, 120 mL, 0 Refill(s) albuterol(ProAir HFA 90 mcg/ inh inhalation aerosol) 2 puffs 06/21/2018 Inhalation 2 puffs, Inhalation, q4hr, P RN: as needed for wheezing, 8.5 g, 0 Refill(s) ondansetron(Zofran 4 mg oral tablet) 1 tabs 06/21/2018 Oral 4 mg as needed for nausea/vomiting, # 10 tabs, 0 Refill(s), Pharmacy: [facility]/pharmacy #[id number], 1 tabs Oral q4hr,PRN:Nausea or Vomiting as needed for nausea/vomiting 4 mg = 1 tabs, Oral, q4hr, PRN: Nausea or Vomiting as needed for nausea/vomiting, 10 tabs... Problems Date Dx Coded Attending Type Code Diagnosis Diagnosed By 01/22/2012 Radha ROSE, Raji Final 789. 03 RLQ ABDOMINAL PAIN 10/23/2017 GABRIEL COX S E282 Polycystic ovarian syndrome 10/23/2017 GABRIEL COX [id number] Nicotine dependence, unspecified, uncomplicated 10/23/2017 GABRIEL COX P J029 Acute pharyngitis, unspecified 10/23/2017 GABRIEL COX S R110 Nausea 10/23/2017 GABRIEL COX S R590 Localized enlarged lymph nodes 09/11/2018 ROBIN KIRKPATRICK P A 084 Viral intestinal infection, unspecified 09/11/2018 ROBIN KIRKPATRICK S E6601 Morbid (severe) obesity due to excess calories 07/11/2019 SABRINA MOULTON APRN Ot R11 .0 NAUSEA 07/14/2019 JULIETA ROSE, FREYA T Ot F17.210 NICOTINE DEPENDENCE, CIGARETTES, UNCOMPL 07/14/2019 JULIETA ROSE, FREYA T Ot R11.2 NAUSEA WITH VOMITING, UNSPECIFIED 07/14/2019 JULIETA ROSE, FREYA T Ot Z91.120 PT INTENTL UNDRDOSE OF MEDS REGIMEN DUE 07/14/2019 SABRINA MOULTON APRN Ot R11 .0 NAUSEA 07/18/2019 JULIETA ROSE, FREYA T Ot F17.210 NICOTINE DEPENDENCE, CIGARETTES, UNCOMPL 07/18/2019 JULIETA ROSE, FREYA T Ot R11.2 NAUSEA WITH VOMITING, UNSPECIFIED 07/18/2019 JULIETA ROSE, FREYA T Ot Z91.120 PT INTENTL UNDRDOSE OF MEDS REGIMEN DUE 07/20/2019 JULIETA ROSE, FREYA T Ot F17.210 NICOTINE DEPENDENCE, CIGARETTES, UNCOMPL 07/20/2019 JULIETA ROSE, FREYA T Ot R11.2 NAUSEA WITH VOMITING, UNSPECIFIED 07/20/2019 JULIETA ROSE, FREYA T Ot Z91.120 PT INTENTL UNDRDOSE OF MEDS REGIMEN DUE 07/25/2019 SABRINA MOULTON APRN Ot F17.210 NICOTINE DEPENDENCE, CIGARETTES, UNCOMPL 07/25/2019 SABRINA MOULTON APRN Ot F32 .9 MAJOR DEPRESSIVE DISORDER, SINGLE EPISOD 07/25/2019 SABRINA MOULTON APRN Ot F41 .9 ANXIETY DISORDER, UNSPECIFIED 07/25/2019 SABRINA MOULTON APRN Ot R05 COUGH 07/25/2019 SABRINA MOULTON APRN Ot R11 .2 NAUSEA WITH VOMITING, UNSPECIFIED 07/25/2019 MOULTON, PETER J [employer]NA[employer] Ot R19 .7 DIARRHEA, UNSPECIFIED 07/28/2019 SABRINA MOULTON PRACTICE MANAGERS Ot F17.210 NICOTINE DEPENDENCE, CIGARETTES, UNCOMPL 07/28/2019 SABRINA MOULTON [employer]ACTICE MANAGERS Ot F32 .9 MAJOR DEPRESSIVE DISORDER, SINGLE EPISOD 07/28/2019 SABRINA MOULTON PRACTICE MANAGERS Ot F41 .9 ANXIETY DISORDER, UNSPECIFIED 07/28/2019 SABRINA MOULTON APRN Ot R05 COUGH 07/28/2019 SABRINA MOULTON APRN Ot R11 .2 NAUSEA WITH VOMITING, UNSPECIFIED 07/28/2019 SABRINA MOULTON PRACTICE MANAGERS Ot R19 .7 DIARRHEA, UNSPECIFIED Procedures There is no data. Results Test [...] 150-400 URINE CULTURE - 09/07/17 18:33 Microbiology S pyo Ag Throat Ql - 10/23/17 22:39 RAPID STREP NEGATIVE NEGATIVE HCG Preg Ur Ql - 09/11/18 20:00 Test Urine NEGATIVE Negative UA dipstick W Reflex Micro pnl Ur - 08/25 12/13 20:00 GLUCOSE Negative Negative Color Yellow Yellow - Jacklyn Appearance Cloudy Clear Protein Negative Negative Bilirubin Negative Negative Urobilinogen Negative 0.2 - 1.0 mg/dl pH 8.0 5.0 - 9.0 Blood Small Negative Ketone Negative Negative Nitrites Negative Negative Leukocytes Negative Negative Spec Grav 1.021 1.005 - 1.030 RBC's [none] NRG WBC's [none] NRG Epith Squam Many NRG Epith Transit [none] NRG Epith Renal [none] NRG Bacteria Trace NRG HYALINE [none] NRG CELLULAR [none] NRG GRANULAR [none] NRG WAXY [none] NRG CALCIUM OXALATE [none] NRG AMORPHOUS Few NRG TRIPLE PHOSPHATE [none] NRG URIC ACID(C) [none] NRG Trich. vaginalis [none] NRG SPERM [none] NRG Mucous [none] NRG YEAST Few NRG Complete urinalysis with reflex to cultu [...] g/dL 3.2-4.5 CALCIUM CORRECTED 9.1 mg/dL 8.5-10.1 Bacterial urine culture - 07/21/19 14:11 Bacterial urine culture [id number] NRG COLONY COUNT <10,000 NRG SUSCEPTIBILITY SEE COMMENT NRG MRSA SCREEN COLLECTION CONTAMINATION WITH SKIN MELVIN RA NRG RAPID ID NO SUSCEPTIBILITY PERFORMED N RG Radiology Report from [facility] on 04/26/20 18 07:43:00 PATIENT NAME: JACEK BOCANEGRA UNIT NO: [id number] EXAMS: CPT CODE: [id number] XR ANKLE 3 V LT [id number] INDICATION: Left ankle pain. TIME: 04/26/2018 2:45 [...] 04/26/2018 0738 BY: DIVINA EXAM COMPLETE DATE/TIME: [id number] D/TM:04/26/2018 (0743) [facility] NAME: JACEK BOCANEGRA [address] HP: [phone] AGE: 18 S:[place] [address] : 2000 LOC: W.EDW PHYS: Camilla Sharma MD PHONE #: [phone] EXAM DATE: 04/26/2018 STATUS: [facility] ER FAX #: [phone] A#: [id number] U#: [id number] PAGE 1 Signed Report *Final Page* Encounters ACCT No. Visit Date/Time Discharge Status Pt. Type Provider Facility Loc./Unit Complaint [id number] 09/11/2018 19:46:00 09/11/2018 20:49: 00 DIS Emergency ROBIN KIRKPATRICK [facility] 025 NAUSEA/VOMITING [id number] 10/23/2017 22:25:00 10/23/2017 23:41: 00 DIS Emergency GABRIEL COX [facility] 025 NAUSEA/THROAT PAIN [id number] 01/22/2012 20:55:00 01/23/20 12 00:20:00 DIS Emergency Radha ROSE, Raji [facility] on Patrick BOB [id number] 09/11/2018 19:46:00 Document Registration [id number] 10/23/2017 22:25:00 Document Registration [id number] 10/06/2019 15:00:00 10/06/2019 23:59: 59 CLS Outpatient TAMIA CHANEY LACElida [facility] [id number] 06/21/2018 11:34:00 019 23:59:00 DIS Outpatient Herber Brooke Meehan ty [facility] VCC Mur IC ICM COUGH VOMITTING [id number] 06/22/2018 05:19:47 Document Registration [id number] 04/26/2018 02:30:00 03:27:00 DIS Emergency Hector ROSE, Camilla Marrero [facility] W.EDW [id number] 09/07/2017 18:03:00 19:26:00 DIS Emergency Bairon Briceno DO [facility] W.EDW [id number] 07/21/2019 14:00:00 15:00:00 DIS Outpatient SABRINA MOULTON APRN Via [facility] ER NAUSEA/VOMITING;COUGH [id number] 07/14/2019 03:43:00 04:45:00 DIS Emergency JULIETA ROSE, FREYA Dawn Via [facility] ER NAUSEA,HOT FLASHES,COUGH,LIGHT HEADED,DIZZY [id number] 07/11/2019 14:35:00 15:31:00 DIS Outpatient SABRINA MOULTON APRN Via [facility] ER NAUSEA
--- NOTE | 2019-10-30 20:24 | NUR ---
C COLLAR APPLIED BY PROVIDER.
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
--- NOTE | 2019-10-30 21:20 | NUR ---
C COLLAR REMOVED BY PROVIDER.
[2019-10-30 21:44] VITALS: BP 148/89
== END 2019-10-30 21:49 | disposition home or self-care (01) ==
LOC: EDUNIT# 20:13 → ER 20:14
DX: M54.2 Cervicalgia (principal); R51 Headache; F17.210 Nicotine dependence, cigarettes, uncomplicated; E28.2 Polycystic ovarian syndrome; F41.9 Anxiety disorder, unspecified; F32.9 Major depressive disorder, single episode, unspecified; V86.69XA Passenger of other special all-terrain or other off-road motor vehicle injured in nontraffic accident, initial encounter
CPT/HCPCS: 70450; 72125; 84703

== ENCOUNTER 2021-12-13 23:46 | Observation (INO) | payer SELFPAY ==
[~2021-12-13] VITALS: Ht 162 cm; Wt 123.8 kg
[2021-12-14] MEDS ORDERED: LACTATED RINGERS 1,000 ML IV ONE (00:15)
[2021-12-14] MEDS ORDERED: MIDAZOLAM 5 MG/5 ML (VERSED) VIAL IVP ONE ×2 (00:15→01:45)
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
[2021-12-14] MEDS ORDERED: PROMETHAZINE INJ 25 MG/ML (PHENERGAN) AMP IVP ONE (00:30)
[2021-12-14 00:31] LABS: BASOPHILS % (AUTO) 0 % (0-10); EOSINOPHILS % (AUTO) 0 % (0-10); HEMATOCRIT 44 % (35-52); HEMOGLOBIN 14.8 g/dL (11.5-16.0); LYMPHOCYTES % (AUTO) 7 % (12-44); MEAN CORPUSCULAR HEMOGLOBIN 31 pg (25-34); MEAN CORPUSCULAR HGB CONC 34 g/dL (32-36); MEAN CORPUSCULAR VOLUME 92 fL (80-99); MEAN PLATELET VOLUME 10.4 fL (9.0-12.2); MONOCYTES # (AUTO) 0.3 10^3/uL (0.0-1.0); MONOCYTES % (AUTO) 2 % (0-12); NEUTROPHILS # (AUTO) 13.4 10^3/uL (1.8-7.8); NEUTROPHILS % (AUTO) 90 % (42-75); PLATELET COUNT 316 10^3/uL (130-400); WHITE BLOOD COUNT 14.9 10^3/uL (4.3-11.0)
[2021-12-14 00:46] LABS: ALBUMIN 4.7 GM/DL (3.2-4.5); CHLORIDE 105 MMOL/L (98-107); POTASSIUM 4.4 MMOL/L (3.6-5.0); SODIUM 138 MMOL/L (135-145)
[2021-12-14 00:48] LABS: CALCIUM 10.2 MG/DL (8.5-10.1)
[2021-12-14 00:49] LABS: GLUCOSE 119 MG/DL (70-105); TOTAL PROTEIN 8.3 GM/DL (6.4-8.2)
[2021-12-14 00:50] LABS: CARBON DIOXIDE 19 MMOL/L (21-32)
[2021-12-14 00:51] LABS: BILIRUBIN,TOTAL 0.7 MG/DL (0.1-1.0)
[2021-12-14 00:52] LABS: ALKALINE PHOSPHATASE 62 U/L (40-136); CREATININE SERUM 0.89 MG/DL (0.60-1.30); GFR ESTIMATED 93
[2021-12-14 00:54] LABS: BUN/CREATININE RATIO 12
[2021-12-14 00:55] LABS: SALICYLATE < 5.0 MG/DL (5.0-20.0)
[2021-12-14 00:56] LABS: ALANINE AMINOTRANSFERASE 89 U/L (0-55)
[2021-12-14 00:57] LABS: BAND NEUTROPHILS 1 %; EOSINOPHILS % (MANUAL) 2 %; LYMPHOCYTES % (MANUAL) 6 %; MONOCYTES % (MANUAL) 2 %; MYELOCYTES % 1 %; NEUTROPHILS % (MANUAL) 88 %
[2021-12-14 00:58] LABS: ACETAMINOPHEN < 10 UG/ML (10-30); RBC MORPH NORMAL
[2021-12-14 00:59] LABS: BILIRUBIN,URINE 1+ (NEGATIVE); CLARITY,URINE CLEAR; COLOR,URINE YELLOW; GLUCOSE, URINE (UA) NEGATIVE (NEGATIVE); KETONES,URINE NEGATIVE (NEGATIVE); LEUKOCYTE ESTERASE ,URINE TRACE (NEGATIVE); NITRITE,URINE NEGATIVE (NEGATIVE); PROTEIN,URINE NEGATIVE (NEGATIVE)
[2021-12-14 01:08] LABS: BACTERIA,URINE FEW /HPF; RBC,URINE 0-2 /HPF; SQUAMOUS EPITHELIAL CELL,UR 0-2 /HPF; WBC,URINE 0-2 /HPF
[2021-12-14 01:15] LABS: AMPHETAMINE SCREEN, URINE NEGATIVE (NEGATIVE); BARBITURATE SCREEN URINE NEGATIVE (NEGATIVE); BENZODIAZEPINES SCREEN URINE NEGATIVE (NEGATIVE); CANNABINOID SCREEN, URINE NEGATIVE (NEGATIVE); COCAINE SCREEN URINE NEGATIVE (NEGATIVE); METHADONE STAT NEGATIVE (NEGATIVE); OPIATE SCREEN URINE NEGATIVE (NEGATIVE); OXYCODONE STAT NEGATIVE (NEGATIVE); PROPOXYPHENE STAT NEGATIVE (NEGATIVE); TRICYCLIC ANTIDEPRESSANTS SCRE NEGATIVE (NEGATIVE)
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
[2021-12-14 04:16] LABS: BASOPHILS % (AUTO) 0 % (0-10); EOSINOPHILS % (AUTO) 0 % (0-10); HEMATOCRIT 41 % (35-52); LYMPHOCYTES # (AUTO) 1.9 10^3/uL (1.0-4.0); LYMPHOCYTES % (AUTO) 15 % (12-44); MEAN CORPUSCULAR HEMOGLOBIN 32 pg (25-34); MEAN CORPUSCULAR HGB CONC 34 g/dL (32-36); MEAN CORPUSCULAR VOLUME 92 fL (80-99); MEAN PLATELET VOLUME 10.2 fL (9.0-12.2); MONOCYTES # (AUTO) 0.6 10^3/uL (0.0-1.0); MONOCYTES % (AUTO) 4 % (0-12); NEUTROPHILS # (AUTO) 10.4 10^3/uL (1.8-7.8); NEUTROPHILS % (AUTO) 80 % (42-75); PLATELET COUNT 310 10^3/uL (130-400); WHITE BLOOD COUNT 13.1 10^3/uL (4.3-11.0)
[2021-12-14 04:30] LABS: ALBUMIN 4.5 GM/DL (3.2-4.5); POTASSIUM 4.4 MMOL/L (3.6-5.0)
[2021-12-14 04:32] LABS: TOTAL PROTEIN 7.8 GM/DL (6.4-8.2)
[2021-12-14 04:34] LABS: BILIRUBIN,TOTAL 0.6 MG/DL (0.1-1.0)
[2021-12-14 04:36] LABS: CREATININE SERUM 0.86 MG/DL (0.60-1.30)
[2021-12-14 04:39] LABS: MAGNESIUM 2.1 MG/DL (1.6-2.4)
[2021-12-14] MEDS ORDERED: LACTATED RINGERS 1,000 ML IV SCH (05:30)
[2021-12-14] MEDS ORDERED: PROMETHAZINE INJ 25 MG/ML (PHENERGAN) AMP IVP PRN (05:30)
[2021-12-14] MEDS ORDERED: MAGNESIUM 2 GM/50 ML IVPB 50 ML IV ONE (05:30)
[2021-12-14] MEDS ORDERED: ONDANSETRON 4 MG/2 ML (SDV) Z0FRAN IV PRN (05:30)
[2021-12-14] MEDS ORDERED: MIDAZOLAM 5 MG/5 ML (VERSED) VIAL IV PRN (05:30)
[2021-12-14] MEDS ORDERED: MAGNESIUM 2 GM/50 ML IVPB 50 ML IV PRN (07:42)
[2021-12-14] MEDS ORDERED: SODIUM BICARB 8.4% 50 MEQ/50 ML (ABBOTT) SYR IV PRN (07:45)
[2021-12-14] MEDS ORDERED: MAGNESIUM 1 GM/100 ML IVPB 200 ML IV PRN ×2 (07:45)
--- NOTE | 2021-12-14 07:51 | History & Physical-Hospitalist ---
History of Present Illness HPI/Chief Complaint Chief complaint: Wellbutrin overdose History of present illness: This is a 21-year-old female who took several Wellbutrin tablets in a suicide gesture. She was placed in the ICU and monitored but no QT abnormalities noted on repeat EKGs. Her is at the bedside. She denies any suicidal intent at this current time. Source: family Exam Limitations: no limitations Date Seen 12/14/21 Time Seen by a Provider: 06:00 Attending Physician Ginger Funk Aprn PCP Admitting Physician: Tootie Wei DO Attending Physician: Tootie Wei DO Referring Physician Date of Admission Dec 14, 2021 at 01:45 Home Medications & Allergies Home Medications Reviewed patient Home Medication Reconciliation performed by pharmacy medication reconciliations hvac service technician and/or nursing. Patients Allergies have been reviewed. Allergies Allergies Coded Allergies No Known Drug Allergies (Unverified07/11/19) Past Mscohaw-Igrmid-Lpcrln Hx Patient Social History Marrital Status: Employed/Student: unemployed Tobacco Use?: Yes Tobacco type used: Cigarettes Smoking Status: Current Everyday Smoker Use of E-Cig and/or Vaping dev: No Substance use?: No Alcohol Use?: No Pt feels they are or have been: No Immunizations Up To Date Hepatitis A: No Hepatitis B: No PED Vaccines UTD: No Seasonal Allergies Seasonal Allergies: No Current Status Advance Directives: No Communicates: Verbally Primary Language: Chilean Preferred Spoken Language: Chilean Is interpretation needed?: No Past Medical History Anxiety, Depression Review of Systems Constitutional: see HPI Physical Exam Physical Exam Vital Signs Vital Signs - First Documented 12/14/21 00:00 Temp 36.8 Pulse 123 Resp 16 B/P (MAP) 138/84 (102) Pulse Ox 98 O2 Delivery Room Air Capillary Refill : Less Than 3 Seconds Height, Weight, BMI Height: '" Weight: lbs. oz. kg; 47.82 BMI Method: General Appearance: No Apparent Distress, Obese Eyes: Right Eye Normal Inspection, Right Eye PERRL HEENT: PERRL/EOMI, Normal ENT Inspection, Pharynx Normal, Moist Mucous Membranes Neck: Full Range of Motion, Normal Inspection, Non Tender Respiratory: Chest Non Tender, Lungs Clear, Normal Breath Sounds, No Accessory Muscle Use, No Respiratory Distress Cardiovascular: Regular Rate, Rhythm, No Edema, No Gallop, No JVD, No Murmur, Normal Peripheral Pulses Gastrointestinal: Normal Bowel Sounds, No Organomegaly, No Pulsatile Mass, Non Tender, Soft Back: Normal Inspection, No CVA Tenderness, No Vertebral Tenderness Extremity: Normal Capillary Refill, Normal Inspection, Normal Range of Motion, Non Tender, No Calf Tenderness, No Pedal Edema Neurologic/Psychiatric: Alert, Oriented x3, No Motor/Sensory Deficits, Normal Mood/Affect Skin: Normal Color, Warm/Dry Lymphatic: No Adenopathy Results Results/Procedures Labs Laboratory Tests 12/14/21 00:20 12/14/21 04:06 Patient resulted labs reviewed. Assessment/Plan Admission Diagnosis Assessment: Suicidal gesture with Wellbutrin Obesity Plan: Moved to fourth floor Admission Status: Observation Diagnosis/Problems Diagnosis/Problems (1) Deliberate medication overdose Status: Acute Qualifiers: Encounter type: initial encounter Qualified Codes: T50.902A - Poisoning by unspecified drugs, medicaments and biological substances, intentional self-harm, initial encounter TOOTIE WEI DO Dec 14, 2021 07:51
[2021-12-14 10:13] VITALS: BP 126/72
--- NOTE | 2021-12-14 10:22 | Discharge Summary ---
Discharge Summary Hospital Course Was the Problem List Reviewed?: Yes Problems/Dx: (1) Deliberate medication overdose Status: Acute Qualifiers: Qualified Codes: T50.902A - Poisoning by unspecified drugs, medicaments and biological substances, intentional self-harm, initial encounter Hospital Course Date of Admission: Dec 14, 2021 at 01:45 Admission Diagnosis : Family Physician/Provider: No,Local Physician Date of Discharge: 12/14/21 Discharge Diagnosis: [ ] Hospital Course: Short course after admitted after suicidal gesture with Wellbutrin. No EKG ch angbrandy so she was discharged improved condition without suicidal ideation. Labs and Pending Lab Test: Laboratory Tests 12/14/21 00:20: White Blood Count 14.9H, Red Blood Count 4.75, Hemoglobin 14.8, Hematocrit 44, Mean Corpuscular Volume 92, Mean Corpuscular Hemoglobin 31, Mean Corpuscular Hemoglobin Concent 34, Red Cell Distribution Width 11.9, Platelet Count 316, Mean Platelet Volume 10.4, Immature Granulocyte % (Auto) 0, Neutrophils (%) (Auto) 90H, Lymphocytes (%) (Auto) 7L, Monocytes (%) (Auto) 2, Eosinophils (%) (Auto) 0, Basophils (%) (Auto) 0, Neutrophils # (Auto) 13.4H, Lymphocytes # (Auto) 1.0, Monocytes # (Auto) 0.3, Eosinophils # (Auto) 0.0, Basophils # (Auto) 0.0, Immature Granulocyte # (Auto) 0.1, Neutrophils % (Manual) 88, Lymphocytes % (Manual) 6, Monocytes % (Manual) 2, Eosinophils % (Manual) 2, Myelocytes % 1, Band Neutrophils 1, Blood Morphology Comment NORMAL, Sodium Level 138, Potassium Level 4.4, Chloride Level 105, Carbon Dioxide Level 19L, Anion Gap 14, Blood Urea Nitrogen 11, Creatinine 0.89, Estimat Glomerular Filtration Rate 93, BUN/Creatinine Ratio 12, Glucose Level 119H, Calcium Level 10.2H, Corrected Calcium , Total Bilirubin 0.7, Aspartate Amino Transf (AST/SGOT) 36H, Alanine Aminotransferase (ALT/SGPT) 89H, Alkaline Phosphatase 62, Total Protein 8.3H, Albumin 4.7H, Salicylates Level < 5.0L, Acetaminophen Level < 10L, Serum Alcohol < 10 12/14/21 00:33: Magnesium Level 2.1 12/14/21 00:50: Urine Color YELLOW, Urine Clarity CLEAR, Urine pH 6.0, Urine Specific [place] >=1.030, Urine Protein NEGATIVE, Urine Glucose (UA) NEGATIVE, Urine Ketones NEGATIVE, Urine Nitrite NEGATIVE, Urine Bilirubin 1+H, Urine Urobilinogen 0.2, Urine Leukocyte Esterase TRACEH, Urine RBC (Auto) 1+H, Urine RBC 0-2, Urine WBC 0-2, Urine Squamous Epithelial Cells 0-2, Urine Crystals NONE, Urine Bacteria FEWH, Urine Casts NONE, Urine Mucus SMALLH, Urine Culture Indicated YES, Urine Opiates Screen NEGATIVE, Urine Oxycodone Screen NEGATIVE, Urine Methadone Screen NEGATIVE, Urine Propoxyphene Screen NEGATIVE, Urine Barbiturates Screen NEGATIVE, Ur Tricyclic Antidepressants Screen NEGATIVE, Urine Phencyclidine Screen NEGATIVE, Urine Amphetamines Screen NEGATIVE, Urine Methamphetamines Screen NEGATIVE, Urine Benzodiazepines Screen NEGATIVE, Urine Cocaine Screen NEGATIVE, Urine Cannabinoids Screen NEGATIVE 12/14/21 04:06: White Blood Count 13.1H, Red Blood Count 4.45, Hemoglobin 14.0, Hematocrit 41, Mean Corpuscular Volume 92, Mean Corpuscular Hemoglobin 32, Mean Corpuscular Hemoglobin Concent 34, Red Cell Distribution Width 12.0, Platelet Count 310, Mean Platelet Volume 10.2, Immature Granulocyte % (Auto) 1, Neutrophils (%) (Auto) 80H, Lymphocytes (%) (Auto) 15, Monocytes (%) (Auto) 4, Eosinophils (%) (Auto) 0, Basophils (%) (Auto) 0, Neutrophils # (Auto) 10.4H, Lymphocytes # (Auto) 1.9, Monocytes # (Auto) 0.6, Eosinophils # (Auto) 0.0, Basophils # (Auto) 0.0, Immature Granulocyte # (Auto) 0.1, Sodium Level 140, Potassium Level 4.4, Chloride Level 106, Carbon Dioxide Level 20L, Anion Gap 14, Blood Urea Nitrogen 9, Creatinine 0.86, Estimat Glomerular Filtration Rate 97, BUN/Creatinine Ratio 10, Glucose Level 91, Calcium Level 10.0, Corrected Calcium 9.6, Total Bilirubin 0.6, Aspartate Amino Transf (AST/SGOT) 30, Alanine Aminotransferase (ALT/SGPT) 80H, Alkaline Phosphatase 59, Total Protein 7.8, Albumin 4.5, Magnesium Level 2.1, Phosphorus Level 3.0 Home Meds Active Ondansetron Odt (Ondansetron) 8 Mg Tab.rapdis 8 Mg PO Q6H PRN Assessment/Pt Instructions PCP 1 week Discharge Planning: <30 minutes discharge planning Discharge Physical Examination Vital Signs Vital Signs Date Time Temp Pulse Resp B/P (MAP) Pulse Ox O2 Delivery O2 Flow Rate FiO2 12/14/21 10:13 36.3 88 18 126/72 (90) 97 Room Air General Appearance: No Apparent Distress, WD/WN, Chronically ill Allergies: Coded Allergies: No Known Drug Allergies (Unverified , 07/11/19) Discharge Summary Date of Admission Dec 14, 2021 at 01:45 Date of Discharge Discharge Date: Dec 14, 2021 WAYNE MELENDEZ DO Dec 14, 2021 10:22
[2021-12-14 11:07] VITALS: BP 126/72
== END 2021-12-14 10:22 | disposition home or self-care (01) ==
LOC: EDUNIT# 23:46 → ER 23:48 → ICU 23:49 → UNDOADMOB 12-14 01:45 → ICU 12-14 01:45 → 4TH 12-14 09:32 → ICU 12-14 09:32 → UNDODISOB 12-14 11:00
PROVIDERS: ADMIT Internal Medicine; ATTEND Internal Medicine
DX: T43.292A Poisoning by other antidepressants, intentional self-harm, initial encounter (principal); F17.210 Nicotine dependence, cigarettes, uncomplicated; Z79.899 Other long term (current) drug therapy; E66.9 Obesity, unspecified; T14.91XA Suicide attempt, initial encounter; Z68.42 Body mass index [BMI] 45.0-49.9, adult
CPT/HCPCS: 80053; 80306; 81000; 83735; 84100; 84703; 85007; 85025; 85027; 87088; 93005; 93041; 96361; 96374; 96375; 96376; 99285; G0378 ×2; G0480 ×3; 36415; 80320; 80329

== ENCOUNTER 2021-12-22 13:39 | Emergency (ER) | payer SELFPAY ==
[~2021-12-22] VITALS: Ht 162.5 cm; Wt 123.0 kg
[2021-12-22 14:21] LABS: BASOPHILS # (AUTO) 0.1 10^3/uL (0.0-0.1); BASOPHILS % (AUTO) 1 % (0-10); EOSINOPHILS # (AUTO) 0.3 10^3/uL (0.0-0.3); EOSINOPHILS % (AUTO) 3 % (0-10); HEMATOCRIT 44 % (35-52); HEMOGLOBIN 14.9 g/dL (11.5-16.0); LYMPHOCYTES # (AUTO) 2.7 10^3/uL (1.0-4.0); LYMPHOCYTES % (AUTO) 22 % (12-44); MEAN CORPUSCULAR HEMOGLOBIN 31 pg (25-34); MEAN CORPUSCULAR HGB CONC 34 g/dL (32-36); MEAN CORPUSCULAR VOLUME 93 fL (80-99); MEAN PLATELET VOLUME 10.4 fL (9.0-12.2); MONOCYTES # (AUTO) 0.5 10^3/uL (0.0-1.0); MONOCYTES % (AUTO) 4 % (0-12); NEUTROPHILS # (AUTO) 8.6 10^3/uL (1.8-7.8); NEUTROPHILS % (AUTO) 71 % (42-75); PLATELET COUNT 340 10^3/uL (130-400); WHITE BLOOD COUNT 12.2 10^3/uL (4.3-11.0)
[2021-12-22 14:26] LABS: ALBUMIN 4.5 GM/DL (3.2-4.5); POTASSIUM 4.7 MMOL/L (3.6-5.0)
[2021-12-22 14:27] LABS: CALCIUM 9.6 MG/DL (8.5-10.1)
[2021-12-22 14:30] LABS: BILIRUBIN,TOTAL 0.4 MG/DL (0.1-1.0)
[2021-12-22] MEDS ORDERED: LACTATED RINGERS 1,000 ML IV ONE (14:30)
[2021-12-22] MEDS ORDERED: ONDANSETRON 4 MG/2 ML (SDV) Z0FRAN IVP ONE (14:30)
[2021-12-22 14:32] LABS: CREATININE SERUM 0.84 MG/DL (0.60-1.30)
[2021-12-22 14:35] LABS: MAGNESIUM 2.2 MG/DL (1.6-2.4)
--- NOTE | 2021-12-22 15:18 | ED General ---
General Chief Complaint: Abdominal/GI Problems Stated Complaint: DIARRHEA,NAUSEA Nursing Triage Note: PT AMB TO ED BY POV WITH C/O N/D SINCE 2300 LAST NIGHT. PT REPORTS SHE IS CONCERNED SHE MAY HAVE A BACTERIAL INFECTION BECAUSE SHE HAD SIMILAR SX FOLLOWING OD 6 YRS AGO AND HAD A RECENT OD. DENIES FEVER, VOMITING, CP, SOB, OR ANY OTHER SX AT THIS TIME. Source of Information: Patient Exam Limitations: No Limitations History of Present Illness Date Seen by Provider: Dec 22, 2021 Time Seen by Provider: 13:42 Allergies and Home Medications Allergies Coded Allergies: No Known Drug Allergies (Unverified , 07/11/19) Patient Home Medication List No Active Prescriptions or Reported Meds Past Vojaksh-Doluge-Nmzkqe Hx Patient Social History Tobacco Use?: Yes Tobacco type used: Cigarettes Smoking Status: Current Everyday Smoker Use of E-Cig and/or Vaping dev: No Substance use?: No Alcohol Use?: No Pt feels they are or have been: No Immunizations Up To Date PED Vaccines UTD: No Influenza Vaccine Up-to-Date: No; Not Current First/Initial COVID19 Vaccinat: N/A Seasonal Allergies Seasonal Allergies: No Past Medical History Surgery/Hospitalization HX: DEPRESSION, PCOS Surgeries: No Respiratory: No Cardiac: No Neurological: No Reproductive Disorders: Yes Female Reproductive Disorders: Polycystic Ovarian Dis Genitourinary: No Gastrointestinal: No Musculoskeletal: No Endocrine: No HEENT: No Cancer: No Psychosocial: Yes Anxiety, Depression Integumentary: No Physical Exam Vital Signs Vital Signs - First Documented 12/22/21 13:50 Temp 36.8 Pulse 123 Resp 13 B/P (MAP) 131/97 (108) Pulse Ox 97 O2 Delivery Room Air Capillary Refill : Less Than 3 Seconds Height, Weight, BMI Height: '" Weight: lbs. oz. kg; 46.00 BMI Method: Progress/Results/Core Measures Suspected Sepsis SIRS Temperature: Pulse: 123 Respiratory Rate: 13 Laboratory Tests 12/22/21 14:00: White Blood Count 12.2H Blood Pressure 131 /97 Mean: 108 Laboratory Tests 12/22/21 14:00: Creatinine 0.84, Platelet Count 340, Total Bilirubin 0.4 Results/Orders Lab Results Laboratory Tests Test 12/22/21 14:00 12/22/21 14:05 Range/Units White Blood Count 12.2 H 4.3-11.0 10^3/uL Red Blood Count 4.74 3.80-5.11 10^6/uL Hemoglobin 14.9 11.5-16.0 g/dL Hematocrit 44 35-52 % Mean Corpuscular Volume 93 80-99 fL Mean Corpuscular Hemoglobin 31 25-34 pg Mean Corpuscular Hemoglobin Concent 34 32-36 g/dL Red Cell Distribution Width 12.2 10.0-14.5 % Platelet Count 340 130-400 10^3/uL Mean Platelet Volume 10.4 9.0-12.2 fL Immature Granulocyte % (Auto) 1 % Neutrophils (%) (Auto) 71 42-75 % Lymphocytes (%) (Auto) 22 12-44 % Monocytes (%) (Auto) 4 0-12 % Eosinophils (%) (Auto) 3 0-10 % Basophils (%) (Auto) 1 0-10 % Neutrophils # (Auto) 8.6 H 1.8-7.8 10^3/uL Lymphocytes # (Auto) 2.7 1.0-4.0 10^3/uL Monocytes # (Auto) 0.5 0.0-1.0 10^3/uL Eosinophils # (Auto) 0.3 0.0-0.3 10^3/uL Basophils # (Auto) 0.1 0.0-0.1 10^3/uL Immature Granulocyte # (Auto) 0.1 0.0-0.1 10^3/uL Sodium Level 139 135-145 MMOL/L Potassium Level 4.7 3.6-5.0 MMOL/L Chloride Level 109 H 98-107 MMOL/L Carbon Dioxide Level 18 L 21-32 MMOL/L Anion Gap 12 5-14 MMOL/L Blood Urea Nitrogen 7 7-18 MG/DL Creatinine 0.84 0.60-1.30 MG/DL Estimat Glomerular Filtration Rate 100 BUN/Creatinine Ratio 8 Glucose Level 114 H 70-105 MG/DL Calcium Level 9.6 8.5-10.1 MG/DL Corrected Calcium 9.2 8.5-10.1 MG/DL Magnesium Level 2.2 1.6-2.4 MG/DL Total Bilirubin 0.4 0.1-1.0 MG/DL Aspartate Amino Transf (AST/SGOT) 44 H 5-34 U/L Alanine Aminotransferase (ALT/SGPT) 94 H 0-55 U/L Alkaline Phosphatase 78 40-136 U/L C-Reactive Protein High Sensitivity 0.59 H 0.00-0.50 MG/DL Total Protein 8.0 6.4-8.2 GM/DL Albumin 4.5 3.2-4.5 GM/DL Influenza Type A (RT-PCR) Not Detected Not Detecte Influenza Type B (RT-PCR) Not Detected Not Detecte SARS-CoV-2 RNA (RT-PCR) Not Detected Not Detecte My Orders Orders - FREYA RENDON MD Covid 19 Inhouse Test (12/22/21 13:42) Influenza A And B By Pcr (12/22/21 13:42) Cbc With Automated Diff (12/22/21 14:16) Comprehensive Metabolic Panel (12/22/21 14:16) Hs C Reactive Protein (12/22/21 14:16) Magnesium (12/22/21 14:16) Ed Iv/Invasive Line Start (12/22/21 14:16) Lactated Ringers (Lr 1000 Ml Iv Solution (12/22/21 14:30) Ondansetron Injection (Zofran Injectio (12/22/21 14:30) Medications Given in ED Current Medications Medications Dose Ordered Sig/Emily Route Start Time Stop Time Status Last Admin Dose Admin Lactated Ringer's 1,000 ml @ 0 mls/hr Q0M ONCE IV 12/22/21 14:30 12/22/21 14:31 DC 12/22/21 14:39 0 MLS/HR Ondansetron HCl 8 mg ONCE ONCE IVP 12/22/21 14:30 12/22/21 14:31 DC 12/22/21 14:39 8 MG Vital Signs/I&O 12/22/21 13:50 Temp 36.8 Pulse 123 Resp 13 B/P (MAP) 131/97 (108) Pulse Ox 97 O2 Delivery Room Air Capillary Refill : Less Than 3 Seconds Blood Pressure Mean: 108 Progress Note : Progress Note Patient was treated with a liter of IV fluid and Zofran. Symptoms did improve. Patient notes she has had elevated heart rate since her visit for overdose. This improved with IV hydration and heart rate was noted to be in the 90's at rest. She was encouraged to discuss this with her primary care provider. Work- up was unremarkable here. She had no episodes of vomiting or diarrhea in the ER. See discharge instructions for further discussion. Due to recent overdose, I also inquired about suicidal ideation. She denies suicidal ideation and seem to be in good spirits today. Departure Impression Primary Impression: Diarrhea Qualified Codes: R19.7 - Diarrhea, unspecified Additional Impressions: Nausea alone Sinus tachycardia Disposition: HOME, SELF-CARE Condition: Improved Departure-Patient Inst. Decision time for Depature: 15:10 Referrals: [facility] (PCP) Primary Care Physician PILI BRAUN APRN (Family) Primary Care Physician Patient Instructions: Diarrhea in Adolescents and Adults Add. Discharge Instructions: Your diarrhea is most likely caused by a viral illness. Drink plenty of clear liquids to stay well-hydrated. Gradually advance your t with small quantities of bland food as tolerated. Avoid dairy products and fatty/greasy foods until a couple days beyond resolution of the diarrhea. Use Zofran (ondansetron) as prescribed for nausea and vomiting. This should help you stay hydrated. You may use uemd-xlf-kmlpxid products such as Imodium for the diarrhea. Return to the emergency room if you develop worsening symptoms such as fever, bloody diarrhea, lightheadedness, shortness of breath, accelerating pain, etc. Follow-up with your primary care provider regarding your elevated heart rate. All discharge instructions reviewed with patient and/or family. Voiced understa nding. Scripts Ondansetron (Ondansetron Odt) 4 Mg Tab.rapdis 4 MG SL Q4H PRN for NAUSEA/VOMITING, #10 TAB Prov: FREYA RENDON MD 12/22/21 Copy Copies To 1: [facility]/FREYA LUNSFORD MD Dec 22, 2021 15:18
[2021-12-22] MEDS ORDERED: ONDA4TAB11 SL (15:19)
[2021-12-22 15:34] VITALS: BP 106/70
== END 2021-12-22 15:30 | disposition home or self-care (01) ==
LOC: EDUNIT# 13:39 → ER 13:41
DX: R19.7 Diarrhea, unspecified (principal); R11.0 Nausea; R00.0 Tachycardia, unspecified; F17.210 Nicotine dependence, cigarettes, uncomplicated; Z20.822 Contact with and (suspected) exposure to COVID-19; Z28.310 Unvaccinated for COVID-19
CPT/HCPCS: 36415; 80053; 83735; 85025; 86141; 87636

== ENCOUNTER 2022-03-05 17:01 | Observation (INO) | payer SELFPAY ==
[~2022-03-05] VITALS: Ht 162.6 cm; Wt 123.0 kg
[~2022-03-05 17:01] MED LIST changes: +ONDA4TAB11 SL
--- NOTE | 2022-03-05 17:44 | ED Psychosocial ---
General Chief Complaint: Overdose Stated Complaint: OVERDOSE Source: patient Exam Limitations: no limitations (ALAINA BELL MD) History of Present Illness Date Seen by Provider: Mar 05, 2022 Time Seen by Provider: 17:25 Initial Comments Patient is a 21-year-old female with a history of mental illness, depression and prior suicide attempts who presents to the emergency room today after an admitted overdose on Wellbutrin. Patient states that she took 10 tablets of 150 mg Wellbutrin at approximately 1345. She had been taking these medications to stop smoking. She had some built up at home when she quit smoking but then started smoking again. Today she had an argument/altercation with her family and this precipitated the overdose. She has previously overdosed on Wellbutrin in November of this year. This required an inpatient hospitalization but no subsequent psychiatric placement. Patient admits to anxiety. She is not on daily antidepressants. She does not drink alcohol or use illicit drugs. No recent illnesses. She has a history of PCOS and has irregular menses. She does not believe she could be . She is intermittently a little nauseous. When asked if she was suicidal or still thinking about hurting herself she is a little bit vague and states that she believes her family would be better off without her. She did tell the nurse that this was not so much a suicide attempt as it was a "self-harm" moves. She has previously been a "cutter". Nothing recently. She feels currently well. She is not agitated or anxious. She is not experiencing any auditory or visual hallucinations. She is quite tachycardic at presentation with a heart rate in the 120s. Blood pressure is good oxygen saturations are good. She is a little bit tearful with HPI. All other review of systems reviewed and negative except as stated Timing/Duration: this afternoon (1345) Severity: moderate Associated Symptoms: ingestion, suicidal ideation (ALAINA BELL MD) Allergies and Home Medications Allergies Coded Allergies: No Known Drug Allergies (Unverified , 07/11/19) Patient Home Medication List Home Medication List Reviewed: Yes (ALAINA BELL MD) Ondansetron (Ondansetron Odt) 4 Mg Tab.rapdis, 4 MG SL Q4H PRN for NAUSEA/VOMITING Prescribed by: FREYA MONTES on 12/22/21 1519 Review of Systems Constitutional: see HPI Respiratory: no symptoms reported Cardiovascular: no symptoms reported Gastrointestinal: nausea (mild) Genitourinary: no symptoms reported Musculoskeletal: no symptoms reported Skin: no symptoms reported Psychiatric/Neurological: Depressed, Emotional Problems (ALAINA BELL MD) All Other Systems Reviewed Negative Unless Noted: Yes (ALIANA BELL MD) Past Cgbjsjm-Bvglsh-Uaevbn Hx Patient Social History Tobacco Use?: Yes Tobacco type used: Cigarettes Smoking Status: Current Everyday Smoker Use of E-Cig and/or Vaping dev: No Substance use?: No Alcohol Use?: No (ALAINA BELL MD) Immunizations Up To Date PED Vaccines UTD: No Influenza Vaccine Up-to-Date: No; Not Current First/Initial COVID19 Vaccinat: N/A (ALAINA BELL MD) Seasonal Allergies Seasonal Allergies: No (ALAINA BELL MD) Past Medical History Surgery/Hospitalization HX: DEPRESSION, PCOS Surgeries: No Respiratory: No Cardiac: No Neurological: No Reproductive Disorders: Yes Female Reproductive Disorders: Polycystic Ovarian Dis Genitourinary: No Gastrointestinal: No Musculoskeletal: No Endocrine: No HEENT: No Cancer: No Psychosocial: Yes (History of overdose) Anxiety, Depression Nursing Suicide Risk Notes: pt reports she took 10 welbutrin as a "self harm behavior" pt states she does not want to Integumentary: No (ALAINA BELL MD) Physical Exam Vital Signs - First Documented 03/05/22 17:10 Temp 37.1 Pulse 137 Resp 16 B/P (MAP) 153/105 (121) Pulse Ox 96 (FREYA RENDON MD) Capillary Refill : (ALAINA BELL MD) Height, Weight, BMI Height: '" Weight: lbs. oz. kg; 46.00 BMI Method: General Appearance: WD/WN, obese, other (tearful) HEENT: PERRL/EOMI Neck: full range of motion Respiratory: lungs clear, normal breath sounds, no respiratory distress, no accessory muscle use (ALAINA BELL MD) Progress/Results/Core Measures Results/Orders Lab Results Laboratory Tests Test 03/05/22 17:43 03/05/22 18:00 Range/Units Urine Color YELLOW Urine Clarity CLEAR Urine pH 6.5 5-9 Urine Specific [place] <=1.005 1.016-1.022 Urine Protein NEGATIVE NEGATIVE Urine Glucose (UA) NEGATIVE NEGATIVE Urine Ketones NEGATIVE NEGATIVE Urine Nitrite NEGATIVE NEGATIVE Urine Bilirubin NEGATIVE NEGATIVE Urine Urobilinogen 0.2 < = 1.0 MG/DL Urine Leukocyte Esterase 1+ H NEGATIVE Urine RBC (Auto) 3+ H NEGATIVE Urine RBC 5-10 H /HPF Urine WBC 0-2 /HPF Urine Squamous Epithelial Cells RARE /HPF Urine Crystals NONE /LPF Urine Bacteria FEW H /HPF Urine Casts NONE /LPF Urine Mucus NEGATIVE /LPF Urine Culture Indicated YES Urine Test NEGATIVE NEGATIVE Urine Opiates Screen NEGATIVE NEGATIVE Urine Oxycodone Screen NEGATIVE NEGATIVE Urine Methadone Screen NEGATIVE NEGATIVE Urine Propoxyphene Screen NEGATIVE NEGATIVE Urine Barbiturates Screen NEGATIVE NEGATIVE Ur Tricyclic Antidepressants Screen NEGATIVE NEGATIVE Urine Phencyclidine Screen NEGATIVE NEGATIVE Urine Amphetamines Screen NEGATIVE NEGATIVE Urine Methamphetamines Screen NEGATIVE NEGATIVE Urine Benzodiazepines Screen NEGATIVE NEGATIVE Urine Cocaine Screen NEGATIVE NEGATIVE Urine Cannabinoids Screen NEGATIVE NEGATIVE White Blood Count 12.8 H 4.3-11.0 10^3/uL Red Blood Count 4.38 3.80-5.11 10^6/uL Hemoglobin 13.7 11.5-16.0 g/dL Hematocrit 40 35-52 % Mean Corpuscular Volume 92 80-99 fL Mean Corpuscular Hemoglobin 31 25-34 pg Mean Corpuscular Hemoglobin Concent 34 32-36 g/dL Red Cell Distribution Width 12.0 10.0-14.5 % Platelet Count 318 130-400 10^3/uL Mean Platelet Volume 10.2 9.0-12.2 fL Immature Granulocyte % (Auto) 1 % Neutrophils (%) (Auto) 73 42-75 % Lymphocytes (%) (Auto) 18 12-44 % Monocytes (%) (Auto) 6 0-12 % Eosinophils (%) (Auto) 2 0-10 % Basophils (%) (Auto) 0 0-10 % Neutrophils # (Auto) 9.4 H 1.8-7.8 10^3/uL Lymphocytes # (Auto) 2.3 1.0-4.0 10^3/uL Monocytes # (Auto) 0.7 0.0-1.0 10^3/uL Eosinophils # (Auto) 0.2 0.0-0.3 10^3/uL Basophils # (Auto) 0.1 0.0-0.1 10^3/uL Immature Granulocyte # (Auto) 0.1 0.0-0.1 10^3/uL Sodium Level 141 135-145 MMOL/L Potassium Level 4.0 3.6-5.0 MMOL/L Chloride Level 108 H 98-107 MMOL/L Carbon Dioxide Level 23 21-32 MMOL/L Anion Gap 10 5-14 MMOL/L Blood Urea Nitrogen 10 7-18 MG/DL Creatinine 0.88 0.60-1.30 MG/DL Estimat Glomerular Filtration Rate 95 BUN/Creatinine Ratio 11 Glucose Level 99 70-105 MG/DL Calcium Level 9.8 8.5-10.1 MG/DL Corrected Calcium 9.6 8.5-10.1 MG/DL Magnesium Level 2.1 1.6-2.4 MG/DL Total Bilirubin 0.5 0.1-1.0 MG/DL Aspartate Amino Transf (AST/SGOT) 30 5-34 U/L Alanine Aminotransferase (ALT/SGPT) 68 H 0-55 U/L Alkaline Phosphatase 72 40-136 U/L Total Protein 7.5 6.4-8.2 GM/DL Albumin 4.3 3.2-4.5 GM/DL Salicylates Level < 5.0 L 5.0-20.0 MG/DL Acetaminophen Level < 10 L 10-30 UG/ML Serum Alcohol < 10 <10 MG/DL (FREYA RENDON MD) My Orders Orders - FREYA RENDON MD Lactated Ringers (Lr 1000 Ml Iv Solution (03/05/22 19:15) Midazolam Injection (Versed Injection) (03/05/22 19:15) Ondansetron Injection (Zofran Injectio (03/05/22 19:15) Ed Admission (Communication) (03/05/22 19:23) (FREYA RENDON MD) Medications Given in ED Current Medications Medications Dose Ordered Sig/Emily Route Start Time Stop Time Status Last Admin Dose Admin Lactated Ringer's 1,000 ml @ 0 mls/hr Q0M ONCE IV 03/05/22 19:15 03/05/22 19:16 DC 03/05/22 19:35 1,000 MLS/HR Midazolam HCl 4 mg ONCE ONCE IVP 03/05/22 19:15 03/05/22 19:16 DC 03/05/22 19:35 4 MG Ondansetron HCl 4 mg ONCE ONCE IVP 03/05/22 19:15 03/05/22 19:16 DC 03/05/22 19:35 4 MG (FREYA RENDON MD) Vital Signs/I&O 03/05/22 17:10 Temp 37.1 Pulse 137 Resp 16 B/P (MAP) 153/105 (121) Pulse Ox 96 (FREYA RENDON MD) Progress Progress Note #1: Time: 19:18 Progress Note I assumed care of this patient from Dr. Bell at shift change. Patient was interviewed and examined. She reports feeling nauseated and tired at this time. She reports the Wellbutrin taken was SR approximately 1500 mg. She is vague on her intent with the overdose. She states that it was more of a "self-harm" intent than a suicide attempt. She could not elaborate on what she meant by this. I specifically asked her what her hope or intent was with consuming the medication and she could not give me a good answer. She was in an argument with her sister and mother at the time. She reports she is working through some social issues with a counselor. She is not particularly interested in admission, but I explained the importance of medical clearance with this type of overdose. She is still tachycardic and hypertensive. Per poison control guidelines, Versed will be administered. We will start with a 4 mg IV dose. Patient is being admitted to the ICU with Dr. Torrez excepting. Dr. Torrez will place the admission orders. Exam: General: Alert, oriented, no acute distress, well developed HEENT: Normocephalic and atraumatic, mucous membranes moist Heart: Sinus tachycardia without murmur Lungs: Clear to auscultation bilaterally with normal effort Abdomen: Soft, nontender, nondistended, normal bowel sounds Neuropsych: Alert, oriented, no focal deficits, denies suicidal ideation or intent at this time Skin: Warm and dry without rashes, hirsutism Progress Note #2: Time: 19:48 Progress Note Report given to eICU. (FREYA RENDON MD) Initial ECG Impression Date: Mar 05, 2022 Initial ECG Impression Time: 17:50 Initial ECG Rate: 119 Initial ECG Rhythm: S.Tach Initial ECG Intervals: Normal Comment Sinus tachycardia with no ST elevation or depression. No abnormal intervals or axis deviation. (FREYA RENDON MD) Departure Communication (Admissions) Time/Spoke to Admitting Phy: 19:20 Dr. Torrez (FREYA RENDON MD) Impression Primary Impression: Deliberate medication overdose Qualified Codes: T50.902A - Poisoning by unspecified drugs, medicaments and biological substances, intentional self-harm, initial encounter Additional Impression: Depression Qualified Codes: F32.A - Depression, unspecified Disposition: ADMITTED INPATIENT Condition: Stable Admissions Decision to Admit Reason: Admit from ER (General) Decision to Admit/Date: Mar 05, 2022 Time/Decision to Admit Time: 19:20 (FREYA RENDON MD) Departure-Patient Inst. Referrals: [facility] [place] (PCP) Primary Care Physician PILI BRAUN APRN (Family) Primary Care Physician Patient Instructions: ALCOHOL AND SUBSTANCE ABUSE ALAINA BELL MD Mar 05, 2022 17:44 FREYA RENDON MD Mar 05, 2022 18:20
[2022-03-05 17:55] LABS: BILIRUBIN,URINE NEGATIVE (NEGATIVE); CLARITY,URINE CLEAR; COLOR,URINE YELLOW; GLUCOSE, URINE (UA) NEGATIVE (NEGATIVE); KETONES,URINE NEGATIVE (NEGATIVE); LEUKOCYTE ESTERASE ,URINE 1+ (NEGATIVE); NITRITE,URINE NEGATIVE (NEGATIVE); PH,URINE 6.5 (5-9); PROTEIN,URINE NEGATIVE (NEGATIVE)
[2022-03-05 18:03] LABS: BASOPHILS # (AUTO) 0.1 10^3/uL (0.0-0.1); BASOPHILS % (AUTO) 0 % (0-10); EOSINOPHILS # (AUTO) 0.2 10^3/uL (0.0-0.3); EOSINOPHILS % (AUTO) 2 % (0-10); HEMATOCRIT 40 % (35-52); HEMOGLOBIN 13.7 g/dL (11.5-16.0); LYMPHOCYTES # (AUTO) 2.3 10^3/uL (1.0-4.0); LYMPHOCYTES % (AUTO) 18 % (12-44); MEAN CORPUSCULAR HEMOGLOBIN 31 pg (25-34); MEAN CORPUSCULAR HGB CONC 34 g/dL (32-36); MEAN CORPUSCULAR VOLUME 92 fL (80-99); MEAN PLATELET VOLUME 10.2 fL (9.0-12.2); MONOCYTES # (AUTO) 0.7 10^3/uL (0.0-1.0); MONOCYTES % (AUTO) 6 % (0-12); NEUTROPHILS # (AUTO) 9.4 10^3/uL (1.8-7.8); NEUTROPHILS % (AUTO) 73 % (42-75); PLATELET COUNT 318 10^3/uL (130-400); WHITE BLOOD COUNT 12.8 10^3/uL (4.3-11.0)
[2022-03-05 18:06] LABS: BACTERIA,URINE FEW /HPF; SQUAMOUS EPITHELIAL CELL,UR RARE /HPF; WBC,URINE 0-2 /HPF
[2022-03-05 18:14] LABS: AMPHETAMINE SCREEN, URINE NEGATIVE (NEGATIVE); BARBITURATE SCREEN URINE NEGATIVE (NEGATIVE); BENZODIAZEPINES SCREEN URINE NEGATIVE (NEGATIVE); CANNABINOID SCREEN, URINE NEGATIVE (NEGATIVE); COCAINE SCREEN URINE NEGATIVE (NEGATIVE); HCG,QUALITATIVE URINE NEGATIVE (NEGATIVE); METHADONE STAT NEGATIVE (NEGATIVE); OPIATE SCREEN URINE NEGATIVE (NEGATIVE); OXYCODONE STAT NEGATIVE (NEGATIVE); PROPOXYPHENE STAT NEGATIVE (NEGATIVE); TRICYCLIC ANTIDEPRESSANTS SCRE NEGATIVE (NEGATIVE)
[2022-03-05 18:24] LABS: ALBUMIN 4.3 GM/DL (3.2-4.5); CHLORIDE 108 MMOL/L (98-107); SODIUM 141 MMOL/L (135-145)
[2022-03-05 18:26] LABS: CALCIUM 9.8 MG/DL (8.5-10.1)
[2022-03-05 18:27] LABS: GLUCOSE 99 MG/DL (70-105); TOTAL PROTEIN 7.5 GM/DL (6.4-8.2)
[2022-03-05 18:28] LABS: CARBON DIOXIDE 23 MMOL/L (21-32)
[2022-03-05 18:29] LABS: BILIRUBIN,TOTAL 0.5 MG/DL (0.1-1.0)
[2022-03-05 18:31] LABS: ALKALINE PHOSPHATASE 72 U/L (40-136); CREATININE SERUM 0.88 MG/DL (0.60-1.30); GFR ESTIMATED 95
[2022-03-05 18:32] LABS: BUN/CREATININE RATIO 11
[2022-03-05 18:33] LABS: ACETAMINOPHEN < 10 UG/ML (10-30); SALICYLATE < 5.0 MG/DL (5.0-20.0)
[2022-03-05 18:34] LABS: ALANINE AMINOTRANSFERASE 68 U/L (0-55); MAGNESIUM 2.1 MG/DL (1.6-2.4)
[2022-03-05] MEDS ORDERED: MIDAZOLAM 5 MG/5 ML (VERSED) VIAL IVP ONE (19:15)
[2022-03-05] MEDS ORDERED: LACTATED RINGERS 1,000 ML IV ONE (19:15)
[2022-03-05] MEDS ORDERED: ONDANSETRON 4 MG/2 ML (SDV) Z0FRAN IVP ONE (19:15)
[2022-03-05] MEDS ORDERED: PROPRANOLOL 20 MG (INDERAL) TABLET PO ONE (20:45)
[2022-03-05] MEDS ORDERED: DexMEDEtomidine 250 ML DRIP 250 ML IV ONE (20:45)
[2022-03-05] MEDS ORDERED: DexMEDEtomidine 250 ML DRIP 250 ML IV SCH (20:45)
[2022-03-05] MEDS: LACTATED RINGERS 1,000 ML IV SCH (20:58)
[2022-03-05] MEDS ORDERED: NS IV 500 ML 500 ML IV PRN (21:00)
[2022-03-05] MEDS ORDERED: LORazepam INJ 2 MG/ML (ATIVAN) VIAL IVP PRN (21:00)
--- NOTE | 2022-03-05 21:00 | Tele-ICU Progress Note ---
Progress Note 21F admitted with buproprion OD. Ingested Wellbutrin SR 1,500 mg (150 mg x 10 tabs) around 1345. Had been on presecription for smoking cessation. Does have history of the same in November requiring inpatient hospitalization but no psych admission. Has been going to outpatient treatment. Endorsed self harm but not suicidality. Has been alert and intact since presentation. Had some mild nausea, improved with zofran. No hallucinations, agitation, tremors. She did have hypertension 153/105 and tachycardia 137. Given versed 4 mg per poison control with improvement to 133/84, 112. Patient reports increasing anxiety since being given versed. Exam: patient sitting upright, alert, interacting with phone when I initiated contact. Has a very depressed affect. - Buproprion OD: Biggest risk would be seizures. Should be monitored for 24 hours post ingestion. Hypertension and tachycardia do proceed the seizures, however in 97% of cases they are also preceeded by hallucinations, tremors and agitation. Probably OK to minimize benzos at this point (will reassess after current dose wears off). Give trial dose of propanolol. If develops any of the above triad, will restart benzos. Seizure precautions ordered. Arrythmias and cardiac complications outside of tachycardia are rare, but will monitor. Will need psychiatric clearance prior to discharge. Diagnosis: buproprion overdose, sinus tachycardia _x_ patient provided consent for the telehealth visit ___patient is not able to provide consent for the telehealth visit, service provided to critically care patient using implied consent doctrine. A total of 30 minutes of critical care time was devoted to this patient, including reviewing this patient's available data, including medical history, events of note and test results. * I have overseen the activities of other members of the care team under my direct supervision during events of the note . * This was required to treat and/or prevent further deterioration of critical care conditions ( as above ). * Service provided to a patient admitted to ICU bed via interactive E-CARE system with real-time audio and video telecommunications from [facility]- ICU hub located in [place], [place] Focused Exam Height, Weight, BMI Height: '" Weight: lbs. oz. kg; 45.00 BMI Method: BRYCE MATIAS MD Mar 05, 2022 21:00
[2022-03-06 00:57] VITALS: BP 129/92
[2022-03-06] MEDS: LACTATED RINGERS 1,000 ML IV SCH ×2 (03:51→10:57)
[2022-03-06 05:34] LABS: BASOPHILS % (AUTO) 1 % (0-10); EOSINOPHILS # (AUTO) 0.3 10^3/uL (0.0-0.3); EOSINOPHILS % (AUTO) 3 % (0-10); HEMATOCRIT 39 % (35-52); HEMOGLOBIN 12.5 g/dL (11.5-16.0); LYMPHOCYTES # (AUTO) 1.8 10^3/uL (1.0-4.0); LYMPHOCYTES % (AUTO) 21 % (12-44); MEAN CORPUSCULAR HEMOGLOBIN 30 pg (25-34); MEAN CORPUSCULAR HGB CONC 33 g/dL (32-36); MEAN CORPUSCULAR VOLUME 93 fL (80-99); MEAN PLATELET VOLUME 10.4 fL (9.0-12.2); MONOCYTES # (AUTO) 0.7 10^3/uL (0.0-1.0); MONOCYTES % (AUTO) 8 % (0-12); NEUTROPHILS # (AUTO) 5.7 10^3/uL (1.8-7.8); NEUTROPHILS % (AUTO) 67 % (42-75); PLATELET COUNT 271 10^3/uL (130-400); WHITE BLOOD COUNT 8.5 10^3/uL (4.3-11.0)
[2022-03-06 05:47] LABS: ALBUMIN 3.8 GM/DL (3.2-4.5); POTASSIUM 4.1 MMOL/L (3.6-5.0)
[2022-03-06 05:48] LABS: CALCIUM 9.5 MG/DL (8.5-10.1)
[2022-03-06 05:50] LABS: TOTAL PROTEIN 6.7 GM/DL (6.4-8.2)
[2022-03-06 05:51] LABS: BILIRUBIN,TOTAL 0.6 MG/DL (0.1-1.0)
[2022-03-06 05:53] LABS: CREATININE SERUM 0.84 MG/DL (0.60-1.30); PHOSPHORUS 3.5 MG/DL (2.3-4.7)
[2022-03-06] MEDS ORDERED: KCL 20 MEQ TAB (K-DUR) PO SCH (06:00)
[2022-03-06] MEDS ORDERED: MAGNESIUM 1 GM/100 ML IVPB 100 ML IV SCH (06:00)
[2022-03-06] MEDS ORDERED: POTASSIUM CL 10MEQ/50ML IVPB 50 ML IV SCH (06:00)
--- NOTE | 2022-03-06 10:09 | Tele-ICU Consult ---
History of Present Illness History of Present Illness Date Seen by Provider: Mar 06, 2022 Time Seen by Provider: 10:09 Date of Admission (Tele-ICU Physician , consultation as per request of PCP Service provided via interactive audio and video [employer] E-CARE system to a patient admitted to ICU bed in [facility] by [facility]. Available chart/ vitals / labs / Images reviewed H&P is from ER notes Patient's information available about PMH, Shx, Fhx allergy reviewed inEMR. ROS as per chart and RN report seen by Dr Hickman last night -teleICU Now in ICU, hemodynamically stable Video assessment done using teleICU camera, rest of exam as per RN Discussed with RN. Consultants: Hospital course: 03/05 21F admitted with buproprion OD. Ingested Wellbutrin SR 1,500 mg (150 mg x 10 tabs) around 1345 A/P Buproprion OD: -monitor for seizures for 24 hours post ingestion. - vitals stable -prn benzos RECOVERING VERY WELL Suicidal attempt -psychiatric clearance prior to discharge - as per PCP leukocytes - probably reactive , off abx Lines : periph , (Central Line Necessity Reviewed) Young: void OG: Nutrition: Analgesia: Anxiety/ delirium VTE Prophylaxis: ambulate Stress Ulcer Prophylaxis: na Plans in collaboration with bedside consultants and IM MDs. Discussed with RN to reach out if any questions or concerns A total of 10 minutes of critical care time was devoted to this patient today, required to treat and/or prevent further deterioration of critical care condition ( as above ) . I am remotely monitoring this patient from another state. I am unable to do the bedside exam, and history/physical and pertinent information is taken from other notes in the computer and bedside staff. . Allergies and Home Medications Allergies Coded Allergies: No Known Drug Allergies (Unverified , 07/11/19) Home Medications Ondansetron 4 Mg Tab.rapdis, 4 MG SL Q4H PRN for NAUSEA/VOMITING Prescribed by: FREYA MONTES on 12/22/21 5214 Past Medical/Social/Family Hx Patient Social History Tobacco Use?: Yes Tobacco type used: Cigarettes Smoking Status: Current Everyday Smoker Use of E-Cig and/or Vaping dev: No Substance use?: No Alcohol Use?: No Immunizations Up To Date Influenza Vaccine Up-to-Date: No; Not Current First/Initial COVID19 Vaccinat: N/A Hepatitis A: No Hepatitis B: No Current Status Communicates: Verbally Primary Language: Turkmen Preferred Spoken Language: Turkmen Is interpretation needed?: No Review of Systems Constitutional: see HPI Focused Exam Height, Weight, BMI Height: '" Weight: lbs. oz. kg; 46.67 BMI Method: Exam Exam Patient acknowledged, consented, and participated in this virtual visit which was conducted using real time audio/video Vital Signs Date Time Temp Pulse Resp B/P (MAP) Pulse Ox O2 Delivery O2 Flow Rate FiO2 03/06/22 08:00 99 Room Air 03/06/22 08:00 76 18 119/86 (97) 97 Room Air 03/06/22 07:56 36.2 03/06/22 07:53 77 03/06/22 07:00 78 19 122/95 (104) 97 Room Air 03/06/22 06:00 75 18 122/92 (102) 97 Room Air 03/06/22 05:00 74 17 119/87 (98) 97 Room Air 03/06/22 04:35 37.1 03/06/22 04:00 73 13 121/96 (104) 97 Room Air 03/06/22 04:00 99 Room Air 03/06/22 03:00 79 19 130/90 (103) 97 Room Air 03/06/22 02:00 78 20 123/86 (98) 97 Room Air 03/06/22 01:00 80 19 119/93 (102) 97 Room Air 03/06/22 00:57 79 129/92 03/06/22 00:27 77 03/06/22 00:00 80 17 122/92 (102) 96 Room Air 03/05/22 23:59 99 Room Air 03/05/22 23:00 81 19 120/81 (94) 96 Room Air 03/05/22 22:00 88 19 114/81 (92) 95 Room Air 03/05/22 21:40 36.6 03/05/22 21:27 98 Room Air 03/05/22 21:00 103 120/80 (93) 96 Room Air 03/05/22 20:57 120 128/85 03/05/22 20:19 110 03/05/22 20:15 111 13 123/89 (100) 97 Room Air 03/05/22 20:05 37.1 112 16 133/84 98 03/05/22 17:10 37.1 137 16 153/105 (121) 96 I & O 03/06/22 06:59 Intake Total 2400 ml Output Total 550 ml Balance 1850 ml Height & Weight Height: '" Weight: lbs. oz. kg; 46.67 BMI Method: General Appearance: No Apparent Distress Results Lab Laboratory Tests 03/05/22 18:00 03/06/22 04:50 Assessment/Plan Assessment/Plan 1 STEFANY SMITH MD Mar 06, 2022 10:09
--- NOTE | 2022-03-06 10:40 | History & Physical ---
DREW DEL CASTILLO 03/06/22 1040: History of Present Illness History of Present Illness Reason for visit/HPI Rosalia Carpenter is a 21 yo female who was admitted from the emergency department for Wellbutrin overdose. The patient reports she was upset following an argument with her family and took 10 Wellbutrin SR pills as a form of self harm yesterday. Soon afterwards, she contacted Poison Control and was instructed to present to the ED, where she was given Versed 4 mg IV and admitted for further observation and medical management. The patient states she has tried committing suicide in the past, around 10 times, most recently on 12/13/21 via Wellbutrin overdose; she indicates her most recent suicide attempt prior to that was around 5 years ago. She remarks her depression has improved in recent compared to her years as a teenager. She states she self-harms less frequently and has less anxiety. The patient in the ICU states she still feels fatigued but is otherwise as ymptomatic. The patient denies any chills, chest pain, shortness of breath, cough, abdominal pain, urinary symptoms, back pain, lightheadedness, dizziness, weakness, numbness, leg swelling, or seizure. Date of Admission Mar 05, 2022 at 19:24 I consulted on this patient on 03/06/22 10:32 Attending Physician [facility] Admitting Physician Admitting Physician: Angel Helton MD Attending Physician: Angel Helton MD Consult Allergies and Home Medications Allergies Coded Allergies: No Known Drug Allergies (Unverified , 07/11/19) Patient Home Medication List Hydroxyzine HCl (Hydroxyzine HCl) 10 Mg Tablet, 10 MG PO TID PRN for ANXIETY, (Reported) Entered as Reported by: YOKO TILLMAN on 03/06/221552 Last Action: Reviewed Naproxen (Naproxen) 500 Mg Tablet, 500 MG PO Q12H PRN for PAIN-MILD (1-4), (Reported) Entered as Reported by: YOKO TILLMAN on 03/06/221552 Last Action: Reviewed Semaglutide (Ozempic) 0.25 Mg/0.2 Ml Pen.injctr, 0.25 MG SQ WED, (Reported) Entered as Reported by: YOKO TILLMAN on 11/10/22 1553 Last Action: Reviewed Discontinued Medications Bupropion HCl (Bupropion HCl Sr) 150 Mg Tablet.er, 150 MG PO BID, (Reported) Entered as Reported by: YOKO TILLMAN on 03/06/22 9124 Last Action: Reviewed Ondansetron (Ondansetron Odt) 4 Mg Tab.rapdis, 4 MG SL Q4H PRN for NAUSEA/V OMITING Discontinued Reason: No Longer Taking Prescribed by: FREYA MONTES on 12/22/21 1519 Last Action: Discontinued Past Ubdqjis-Evlbcn-Ylrgqi Hx Patient Social History Tobacco Use?: Yes Tobacco type used: Cigarettes Smoking Status: Current Everyday Smoker (1/3 pack per day) Use of E-Cig and/or Vaping dev: No Substance use?: No Alcohol Use?: No Immunizations Up To Date First/Initial COVID19 Vaccinat: N/A Hepatitis A: No Hepatitis B: No PED Vaccines UTD: No Seasonal Allergies Seasonal Allergies: No Current Status Communicates: Verbally Primary Language: Cymro Preferred Spoken Language: Cymro Is interpretation needed?: No Past Medical History Anxiety, Suicide Attempts, Depression Nursing Suicide Risk Notes: pt reports she took 10 welbutrin as a "self harm behavior" pt states she does not want to PCOS Review of Systems Constitutional: No chills; malaise Respiratory: no symptoms reported; No cough, No dyspnea on exertion, No short of breath Cardiovascular: No chest pain, No edema Gastrointestinal: No abdominal pain, No nausea, No vomiting Genitourinary: No dysuria, No frequency, No incontinence Musculoskeletal: no symptoms reported Skin: no symptoms reported Psychiatric/Neurological: Anxiety, Depressed; Denies Numbness, Denies Paresth esia, Denies Weakness Physical Exam Vital Signs Vital Signs - First Documented 03/05/22 03/05/22 17:10 20:15 Temp 37.1 Pulse 137 Resp 16 B/P (MAP) 153/105 (121) Pulse Ox 96 O2 Delivery Room Air Capillary Refill : Height, Weight, BMI Height: '" Weight: lbs. oz. kg; 46.67 BMI Method: General Appearance: No Apparent Distress, Other (Fatigued in appearance) Eyes: Bilateral Eye Normal Inspection, Bilateral Eye PERRL, Bilateral Eye EOMI HEENT: PERRL/EOMI, Pharynx Normal Respiratory: Lungs Clear, Normal Breath Sounds, No Accessory Muscle Use, No Respiratory Distress Cardiovascular: Regular Rate, Rhythm, No Edema, No Gallop, No Murmur, Normal Peripheral Pulses Gastrointestinal: Normal Bowel Sounds, No Pulsatile Mass, Non Tender, Soft Extremity: No Pedal Edema Neurologic/Psychiatric: delicatessen slicer II-XII Norm as Tested, Depressed Affect Skin: Normal Color, Warm/Dry Assessment/Plan Assessment and Plan Problems: (1) Poisoning by psychotropic drug, intentional self-harm Status: Acute Assessment & Plan: Start patient on dexmedetomidine drip for antisympathetomimetic treatment. Monitor patient for elevated BP, pulse, or seizure activity. (2) History of suicidal ideation Status: Acute Assessment & Plan: Patient instructed to follow up closely with her PCP or behavioral health to discuss mental health treatment. (3) Depression Status: Acute Qualifiers: Qualified Codes: F32.A - Depression, unspecified Assessment & Plan: Patient instructed to follow up closely with her PCP or behavioral health to discuss mental health treatment. ANGEL HELTON MD 03/06/22 1700: History of Present Illness History of Present Illness Time Seen by a Provider: 08:40 Allergies and Home Medications Allergies Coded Allergies: No Known Drug Allergies (Unverified , 07/11/19) Patient Home Medication List Home Medication List Reviewed: Yes Hydroxyzine HCl (Hydroxyzine HCl) 10 Mg Tablet, 10 MG PO TID PRN for ANXIETY, (Reported) Entered as Reported by: YOKO TILLMAN on 03/06/221552 Last Action: Reviewed Naproxen (Naproxen) 500 Mg Tablet, 500 MG PO Q12H PRN for PAIN-MILD (1-4), (Reported) Entered as Reported by: YOKO TILLMAN on 03/06/221552 Last Action: Reviewed Semaglutide (Ozempic) 0.25 Mg/0.2 Ml Pen.injctr, 0.25 MG SQ WED, (Reported) Entered as Reported by: YOKO TILLMAN on 03/06/221552 Last Action: Reviewed Discontinued Medications Bupropion HCl (Bupropion HCl Sr) 150 Mg Tablet.er, 150 MG PO BID, (Reported) Entered as Reported by: YOKO TILLMAN on 03/06/221553 Last Action: Reviewed Ondansetron (Ondansetron Odt) 4 Mg Tab.rapdis, 4 MG SL Q4H PRN for NAUSEA/VOMITING Discontinued Reason: No Longer Taking Prescribed by: FREYA MONTES on 12/22/21 1519 Last Action: Discontinued Assessment/Plan Admission Diagnosis Admission Status: Observation Supervisory-Addendum Brief Verification & Attestation Participated in pt care: history, MDM, physical Personally performed: exam, history, MDM, supervision of care Care discussed with: Medical Student Procedures: n/a I personally saw and examined patient and did my own history and exam which confirmed that documented by the medical student. I directed the plan of care as documented. After 24 hours of observation, if stable, [facility] to screen for inpatient vs outpatient treatment at hospital d/c. DREW DEL CASTILLO Mar 06, 2022 10:40 ANGEL HELTON MD Mar 06, 2022 17:00
[2022-03-06] MEDS ORDERED: SEMA0.25 SQ (15:53)
[2022-03-06] MEDS ORDERED: HYDR-3584 PO (15:53)
[2022-03-06] MEDS ORDERED: BUPR150T24 PO (15:53)
[2022-03-06] MEDS ORDERED: NAPR-915 PO (15:53)
[2022-03-06] MEDS ORDERED: BUPR-105 PO (15:54)
--- NOTE | 2022-03-07 07:20 | Discharge Summary ---
Discharge Summary Hospital Course Problems Reviewed?: Yes Problems/Diagnosis: (1) History of suicidal ideation Status: Chronic Assessment & Plan: Follow up with primary care for medical management or therapy or behavioral health referral (2) Depression Status: Chronic Assessment & Plan: Follow up with primary care for medical management or therapy or behavioral health referral Qualifiers: Qualified Codes: F32.A - Depression, unspecified (3) Poisoning by psychotropic drug, intentional self-harm Status: Acute Assessment & Plan: Poison Control contacted by ED and patient recommended to be observed in the hospital for 24 hours. Patient was stable during this time. [facility] assessed the patient for psychiatric bed need, and she was determined to be safe for discharge home with plan for primary care follow up. Hospital Course Date of Admission: Mar 05, 2022 at 19:24 Admission Diagnosis : Family Physician/Provider: Ginger Funk Aprn Date of Discharge: 03/06/22 Discharge Diagnosis: Wellbutrin Overdose Hospital Course: Rosalia Carpenter is a 21 yo female who was admitted to the ICU from the ED following an intentional overdose of Wellbutrin. The patient is prescribed Wellbutrin for smoking cessation. After an argument with her family on 03/05, the patient took a self-estimated 10 Wellbutrin pills in what she describes as an act of self harm. The patient endorses a history of suicidal ideation and suicide attempts, most recently on 12/13/2021, but she indicates that this was not a suicide attempt, just self harm. She remarks that her depression has improved since her teenage years, but she still has persistent depression and anxiety. The patient denies any chills, chest pain, shortness of breath, abdominal pain, cough, urinary symptoms, back pain, lightheadedness, dizziness, weakness, numbness, or leg swelling throughout her hospital course. Labs and Pending Lab Test: Microbiology 03/06/22 MRSA Screen - Preliminary, Resulted No growth 03/05/22 Urine Culture - Final, Complete 3 or more isolates Strep, Beta Hemolytic Group B Home Meds Active Reported Ozempic (Semaglutide) 0.25 Mg/0.2 Ml Pen.injctr 0.25 Mg SQ WED Hydroxyzine HCl 10 Mg Tablet 10 Mg PO TID PRN Naproxen 500 Mg Tablet 500 Mg PO Q12H PRN Consulations Consultations Poison Control. [facility]. Discharge Physical Examination Allergies: Coded Allergies: No Known Drug Allergies (Unverified , 07/11/19) General Appearance: Obese, Other (Fatigued secondary to medications) HEENT: PERRL/EOMI Respiratory: Lungs Clear, Normal Breath Sounds, No Accessory Muscle Use, No Respiratory Distress; No Crackles, No Decreased Breath Sounds, No Rhonci, No Stridor, No Wheezing Cardiovascular: Regular Rate, Rhythm, No Edema, No Gallop, No Murmur, Normal Peripheral Pulses Gastrointestinal: Normal Bowel Sounds, No Pulsatile Mass, Non Tender, Soft Extremity: Non Tender, No Pedal Edema Skin: Normal Color, Warm/Dry Neurologic/Psychiatric: devulcanizer tender II-XII Norm as Tested Discharge Summary Date of Admission Mar 05, 2022 at 19:24 Date of Discharge Mar 06, 2022 at 17:55 Discharge Date: Mar 06, 2022 Consults/Procedures Consulations Poison Control. [facility]. Discharge Diagnosis Intentional overdose of Wellbutrin (1) Poisoning by psychotropic drug, intentional self-harm Status: Acute Assessment & Plan: Poison Control contacted by ED and patient recommended to be observed in the hospital for 24 hours. Patient was stable during this time. [facility] assessed the patient for psychiatric bed need, and she was determined to be safe for discharge home with plan for primary care follow up. (2) History of suicidal ideation Status: Chronic Assessment & Plan: Patient instructed to follow up closely with her PCP or behavioral health to discuss mental health treatment. (3) Depression Status: Chronic Assessment & Plan: Patient instructed to follow up closely with her PCP or behavioral health to discuss mental health treatment. Qualifiers: Qualified Codes: F32.A - Depression, unspecified DREW DEL CASTILLO Mar 07, 2022 07:18
== END 2022-03-06 16:53 | disposition home or self-care (01) ==
LOC: EDUNIT# 17:01 → ER 17:03 → UNDOADMOB 19:24 → ICU 19:24 → UNDODISOB 03-06 16:53
PROVIDERS: ADMIT Family Medicine; ATTEND Family Medicine
DX: T43.292A Poisoning by other antidepressants, intentional self-harm, initial encounter (principal); F41.9 Anxiety disorder, unspecified; F32.A Depression, unspecified; E66.9 Obesity, unspecified; F17.210 Nicotine dependence, cigarettes, uncomplicated; Z91.51 Personal history of suicidal behavior; Z68.42 Body mass index [BMI] 45.0-49.9, adult; Y92.9 Unspecified place or not applicable
CPT/HCPCS: 80053 ×2; 80306; 81000; 83735 ×2; 84100; 84703; 85025 ×2; 87077; 87081; 87088; 93005; 93041; 99285; G0480 ×3; 36415; 80320; 80329; 96366; G0378